=== PATIENT | male | born 1950 | race Caucasian/White ===

== ENCOUNTER 2017-08-06 15:05 | Emergency (ER) | payer MEDICARE, OTHER ==
[2017-08-06 15:13] VITALS: BP 90/54
[2017-08-06] MEDS ORDERED: Albuterol/Ipratropium 3.0-0.5 MG/3 ML Neb Soln ONE (15:15)
--- NOTE | 2017-08-06 15:15 | EDM.PDOC ---
ED HPI GENERAL MEDICAL PROBLEM - General Chief Complaint: Respiratory Problem Stated Complaint: SOB .IN BY [facility] Time Seen by Provider: 08/06/17 15:15 Source of Information: Reports: Patient, EMS, Old Records, RN, RN Notes Reviewed History Limitations: Reports: No Limitations - History of Present Illness INITIAL COMMENTS - FREE TEXT/NARRATIVE: [facility] with c/o progressively worsening shortness of breath over the past 3 days with thick sputum production. Today NH staff found the pt with labored breathing and Oxy. Sats. of 85%. Pt unsure if he has had a fever or not. Triage nurse reports pt with fever of 38.5C on arrival to ER. Pt denies chest pain. 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 Treatments, Oxygen - Related Data Allergies Allergy/AdvReac Type Severity Reaction Status Date / Time ciprofloxacin [From Cipro] Allergy Anaphylactic Verified 10/10/15 05:07 Shock ciprofloxacin HCl Allergy Anaphylactic Verified 10/10/15 05:07 [From Cipro] Shock Home Meds: Home Meds Budesonide [Pulmicort] 0.5 mg IH BID 12/16/13 [History] Formoterol [Perforomist] 20 mcg INH BID 12/16/13 [History] Potassium Chloride [K-Tab ER] 30 meq PO DAILY 12/16/13 [History] Tiotropium [Spiriva Handihaler] 18 mcg INH DAILY 12/16/13 [History] Acetaminophen 500 mg PO Q6H PRN 01/05/14 [History] Levalbuterol HCl [Xopenex] 1 ampule NEB Q4H PRN 01/05/14 [History] Roflumilast [Daliresp] 500 mcg PO DAILY 01/05/14 [History] Albuterol Sulfate [Proair Hfa] 8.5 gm IH Q4HR PRN 07/05/15 [History] Fluticasone Propionate [Flonase] 1 gm NASBOTH DAILY #1 bottle 07/11/15 [Rx] Pantoprazole [ProTONIX] 40 mg PO ACBREAKFAST 09/26/15 [History] Acetaminophen/oxyCODONE [Percocet 325-5 MG] 1 tab PO Q4H PRN #40 tablet [Rx] Amoxicillin/Potassium Clav [Augmentin 875-125 Tablet] 1 each PO BID #14 tablet 10/02/15 [Rx] Codeine/Promethazine [Phenergan with Codeine] 5 ml PO Q4HR PRN #180 ml 10/02/15 [Rx] Past Medical History HEENT History: Reports: None, Cataract Cardiovascular History: Reports: CAD, Heart Failure, Hypertension Respiratory History: Reports: COPD, Pneumonia, Recurrent, SOB, Other (See Below) Other Respiratory History: Lung CA Gastrointestinal History: Reports: Cholelithiasis, GERD, Pancreatitis Genitourinary History: Reports: None Musculoskeletal History: Reports: Gout Neurological History: Reports: None Psychiatric History: Reports: None Endocrine/Metabolic History: Reports: Diabetes, Type II Hematologic History: Reports: None Immunologic History: Reports: None Oncologic (Cancer) History: Reports: Lung Dermatologic History: Reports: Psoriasis - Infectious Disease History Infectious Disease History: Reports: Other (See Below) Other Infectious Disease History: cannot remember - Past Surgical History HEENT Surgical History: Reports: None, Cataract Surgery, Tonsillectomy GI Surgical History: Reports: Colonoscopy, EGD, Hernia, Inguinal, Hernia Repair/ Other Social & Family History - Family History Family Medical History: Noncontributory Other Cardiac Family History: pt adopted doesnot know history - Caffeine Use Caffeine Use: Reports: Coffee - Living Situation & Occupation Living situation: Reports: with Family Occupation: Retired ED ROS GENERAL - Review of Systems Review Of Systems: ROS reveals no pertinent complaints other than HPI. ED EXAM, GENERAL - Physical Exam Exam: See Below Exam Limited By: Respiratory Distress General Appearance: Alert, Anxious, Moderate Distress Eye Exam: Bilateral Eye: Normal Inspection Ears: Hearing Grossly Normal Nose: Normal Inspection, Normal Mucosa, No Blood Throat/Mouth: Normal Oropharynx, Normal Voice, No Airway Compromise Head: Atraumatic, Normocephalic Neck: Normal Inspection, Supple, Non-Tender, Full Range of Motion Respiratory/Chest: Chest Non-Tender, Decreased Breath Sounds, Rhonchi, Wheezing , Accessory Muscle Use, Prolonged Expiration Cardiovascular: No Edema, Tachycardia GI/Abdominal: Normal Bowel Sounds, Soft, Non-Tender, No Distention (Male) Exam: Deferred Rectal (Males) Exam: Deferred Back Exam: Normal Inspection Extremities: Normal Inspection, Normal Range of Motion, Non-Tender, Normal Capillary Refill, No Pedal Edema Neurological: Alert, Oriented, No Motor/Sensory Deficits Psychiatric: Anxious Skin Exam: Warm, Dry, Intact, Normal Color, No Rash EKG INTERPRETATION EKG Date: 08/06/17 Time: 15:26 Rhythm: Other (sinus tachycardia) Rate (Beats/Min): 137 [place]: Normal P-Wave: Present QRS: RBBB ST-T: Normal QT: Normal Course - Vital Signs Last Recorded V/S: Last Vital Signs Temp 38.5 C H 08/06/17 15:11 Pulse 62 08/06/17 15:20 Resp 19 08/06/17 15:11 BP 90/54 L 08/06/17 15:11 Pulse Ox 91 L 08/06/17 15:20 - Orders/Labs/Meds Orders: Active Orders 24 hr Category Date Time Status EKG 12 Lead [EKG Documentation Completion] [RC] STAT Care 08/06/17 15:16 Active RT Aerosol Therapy [RC] ASDIRECTED Care 08/06/17 15:20 Active CULTURE BLOOD [BC] Stat Lab 08/06/17 15:26 Received CULTURE BLOOD [BC] Stat Lab 08/06/17 15:47 Received Blood Culture x2 Reflex Set [OM.PC] Stat Oth 08/06/17 15:13 Ordered Labs: Laboratory Tests 08/06/17 08/06/17 08/06/17 Range/Units 15:26 15:26 15:26 WBC 34.9 H* (5.0-10.0) 10^3/uL RBC 4.94 (4.6-6.2) 10^6/uL Hgb 13.3 L D (14.0-18.0) g/dL Hct 42.8 (40.0-54.0) % MCV 86.6 (80-100) fL MCH 26.9 L (27.0-34.0) pg MCHC 31.1 L (33.0-35.0) g/dL Plt Count 319 (150-450) 10^3/uL Neut % (Auto) 91.9 H (42.2-75.2) % Lymph % (Auto) 2.5 L (20.5-50.1) % [place] % (Auto) 5.0 (2-8) % Eos % (Auto) 0.3 L (1.0-3.0) % Baso % (Auto) 0.3 (0.0-1.0) % ABG pH (7.35-7.45) ABG pCO2 (35-45) mmHg ABG pO2 (70-100) mmHg ABG HCO3 (22-26) mmol/L ABG O2 Saturation (95-100) % ABG Base Excess ((-2)-(+3)) mmol/L Akhil Test O2 Delivery Device Sodium 138 (135-145) mmol/L Potassium 4.3 (3.6-5.0) mmol/L Chloride 93 L (101-111) mmol/L Carbon Dioxide 33.0 H (21.0-31.0) mmol/L Anion Gap 16.3 BUN 20 H (7-18) mg/dL Creatinine 0.7 (0.6-1.3) mg/dL Est Cr Clr Drug Dosing 91.14 mL/min Estimated GFR (MDRD) > 60 BUN/Creatinine Ratio 28.57 Glucose 125 H (74-105) mg/dL Lactic Acid 2.0 (0.5-2.2) mmol/L Calcium 8.9 (8.4-10.2) mg/dl Total Bilirubin 0.9 (0.2-1.0) mg/dL AST 21 (10-42) IU/L ALT 18 (10-60) IU/L Alkaline Phosphatase 77 (42-121) IU/L Troponin I < 0.02 (0.00-0.02) ng/ml B-Natriuretic Peptide 33 (0-100) pg/ml Total Protein 7.9 (6.7-8.2) g/dl Albumin 4.0 (3.2-5.5) g/dl Globulin 3.9 Albumin/Globulin Ratio 1.03 /02/13 Range/Units 16:14 WBC (5.0-10.0) 10^3/uL RBC (4.6-6.2) 10^6/uL Hgb (14.0-18.0) g/dL Hct (40.0-54.0) % MCV (80-100) fL MCH (27.0-34.0) pg MCHC (33.0-35.0) g/dL Plt Count (150-450) 10^3/uL Neut % (Auto) (42.2-75.2) % Lymph % (Auto) (20.5-50.1) % [place] % (Auto) (2-8) % Eos % (Auto) (1.0-3.0) % Baso % (Auto) (0.0-1.0) % ABG pH 7.41 (7.35-7.45) ABG pCO2 53 H (35-45) mmHg ABG pO2 79 (70-100) mmHg ABG HCO3 32.2 H (22-26) mmol/L ABG O2 Saturation 97 (95-100) % ABG Base Excess 7 H ((-2)-(+3)) mmol/L Akhil Test Performed O2 Delivery Device Bipap Sodium (135-145) mmol/L Potassium (3.6-5.0) mmol/L Chloride (101-111) mmol/L Carbon Dioxide (21.0-31.0) mmol/L Anion Gap BUN (7-18) mg/dL Creatinine (0.6-1.3) mg/dL Est Cr Clr Drug Dosing mL/min Estimated GFR (MDRD) BUN/Creatinine Ratio Glucose (74-105) mg/dL Lactic Acid (0.5-2.2) mmol/L Calcium (8.4-10.2) mg/dl Total Bilirubin (0.2-1.0) mg/dL AST (10-42) IU/L ALT (10-60) IU/L Alkaline Phosphatase (42-121) IU/L Troponin I (0.00-0.02) ng/ml B-Natriuretic Peptide (0-100) pg/ml Total Protein (6.7-8.2) g/dl Albumin (3.2-5.5) g/dl Globulin Albumin/Globulin Ratio Meds: Medications Discontinued Medications Generic Name Dose Route Start Last Admin Trade Name Joseq PRN Reason Stop Dose Admin Albuterol/Ipratropium Confirm 08/06/17 15:15 08/06/17 15:18 Duoneb 3.0-0.5 Mg/3 Ml Administered 08/06/17 15:16 3 ml Dose Administration 3 ml .ROUTE .STK-MED ONE Albuterol/Ipratropium 3 ml 08/06/17 15:20 08/06/17 15:43 Duoneb 3.0-0.5 Mg/3 Ml NEB 08/06/17 15:21 3 ml ONETIME STA Administration Piperacillin Sod/Tazobactam 50 mls @ 100 mls/hr 08/06/17 15:46 08/06/17 16:14 Sod 4.5 gm/ Sodium Chloride IV 08/06/17 16:15 100 mls/hr ONETIME ONE Administration Sodium Chloride 1,000 mls @ 999 mls/hr 08/06/17 16:01 08/06/17 16:13 Normal Saline IV 08/06/17 17:01 999 mls/hr .BOLUS ONE Administration Methylprednisolone Sodium Succinate 125 mg 08/06/17 15:46 08/06/17 16:13 Solu-Medrol IVPUSH 08/06/17 15:47 125 mg ONETIME ONE Administration - Radiology Interpretation Free Text/Narrative:: Chest x-ray: No acute new cardiopulmonary abnormality. See rad report. Departure - Departure Time of Disposition: 16:00 Disposition: DC/[facility] to [facility] Condition: Critical Clinical Impression: Acute exacerbation of chronic obstructive pulmonary disease (COPD) Acute and chronic respiratory failure ([id number]) Qualifiers: Respiratory failure complication: hypoxia Qualified Code(s): J96.21 - Acute and chronic respiratory failure with hypoxia - Discharge Information Referrals: Gracie Cuellar MD [Primary Care Provider] - Forms: ED Department Discharge, Interfacility Transfer EMTALA - My Orders Last 24 Hours: My Active Orders 08/06/17 15:13 Blood Culture x2 Reflex Set [OM.PC] Stat 08/06/17 15:16 EKG 12 Lead [EKG Documentation Completion] [RC] STAT 08/06/17 15:20 RT Aerosol Therapy [RC] ASDIRECTED 08/06/17 15:26 CULTURE BLOOD [BC] Stat 08/06/17 15:47 CULTURE BLOOD [BC] Stat - Assessment/Plan Last 24 Hours: My Active Orders 08/06/17 15:13 Blood Culture x2 Reflex Set [OM.PC] Stat 08/06/17 15:16 EKG 12 Lead [EKG Documentation Completion] [RC] STAT 08/06/17 15:20 RT Aerosol Therapy [RC] ASDIRECTED 08/06/17 15:26 CULTURE BLOOD [BC] Stat 08/06/17 15:47 CULTURE BLOOD [BC] Stat
[2017-08-06] MEDS ORDERED: Albuterol/Ipratropium 3.0-0.5 MG/3 ML Neb Soln NEB STA (15:20)
[2017-08-06] MEDS ORDERED: methylPREDNISolone Sodium Succinate 125 MG/2 ML SDV IVPUSH ONE (15:46)
[2017-08-06] MEDS ORDERED: Piperacillin/Tazobactam 4.5 GM in Sodium Chloride 0.9% 50 ML IV ONE (15:46)
[2017-08-06 15:53] LABS: CHLORIDE,CL 93 mmol/L (101-111); SODIUM,NA 138 mmol/L (135-145)
[2017-08-06] MEDS ORDERED: Sodium Chloride 0.9% 1,000 ML IV ONE (16:01)
--- NOTE | 2017-08-06 16:04 | CR ---
Clinical history: 67-year-old male emergency department with shortness of breath. Interpretation: Old healed fracture deformities anterior right first and posterior lateral right sev enth rib. Chronic shaggy bronchitic pattern unchanged since 26 September 2015 exam (less optimal inspiratory effort crowds lung markings bases) Normal cardiac silhouette without cephalization of vascular flow, new signs of alveolar edema or depe ndent pleural fluid accumulation (effusion). No lung mass or hilar lymphadenopathy. No lobar pneumonia. No pneumothorax. CONCLUSION: No acute new cardiopulmonary abnormality.
[2017-08-06 16:36] LABS: O2 DELIVERY DEVICE BIPAP
[2017-08-06 16:56] LABS: ALLEN TEST PERFORMED; BASE EXCESS ARTERIAL 7 mmol/L ((-2)-(+3)); BICARBONATE,ARTERIAL 32.2 mmol/L (22-26); O2 SATURATION ARTERIAL 97 % (95-100); PCO2 ARTERIAL 53 mmHg (35-45); PO2 ARTERIAL 79 mmHg (70-100)
== END 2017-08-06 17:02 ==
LOC: DL.ED 15:05 → SUPCPDRO 15:05 → DL.ED 17:02
DX: J44.1 Chronic obstructive pulmonary disease with (acute) exacerbation (principal); J96.21 Acute and chronic respiratory failure with hypoxia; I11.0 Hypertensive heart disease with heart failure; I50.9 Heart failure, unspecified; E11.9 Type 2 diabetes mellitus without complications; Z88.1 Allergy status to other antibiotic agents; Z79.899 Other long term (current) drug therapy
CPT/HCPCS: 36415; 36600; 71045; 80053; 82803; 83605; 83880; 84484; 85025; 87040; 93005; 94640; 96365; 96375; 99285; J2543; J2930; J7030; J7050; 93010

== ENCOUNTER 2017-10-07 16:55 | Inpatient (IN) | payer MEDICARE, OTHER ==
[2017-10-07] MEDS ORDERED: Piperacillin/Tazobactam 4.5 GM in Sodium Chloride 0.9% 50 ML IV ONE (17:07)
[2017-10-07] MEDS ORDERED: methylPREDNISolone Sodium Succinate 125 MG/2 ML SDV IVPUSH ONE (17:07)
[2017-10-07] MEDS ORDERED: Albuterol/Ipratropium 3.0-0.5 MG/3 ML Neb Soln NEB ONE ×2 (17:07→18:16)
[2017-10-07 17:48] LABS: ANION GAP 14.2; CHLORIDE,CL 97 mmol/L (101-111); SODIUM,NA 138 mmol/L (135-145)
[2017-10-07] MEDS: Sodium Chloride 0.9% 10 ML Syringe FLUSH PRN (17:49)
[2017-10-07 18:57] LABS: O2 DELIVERY DEVICE NASAL CANNULA
--- NOTE | 2017-10-07 19:00 | EDM.PDOC ---
Scribed by Sol Cosme 10/07/17 2450 for Tyler Dueñas MD ED HPI GENERAL MEDICAL PROBLEM - General Chief Complaint: Respiratory Problem Stated Complaint: RESP PROBLEM Time Seen by Provider: 10/07/17 16:57 Source of Information: Reports: Patient, EMS, Senior Living Records, Old Records , RN, RN Notes Reviewed History Limitations: Reports: No Limitations - History of Present Illness INITIAL COMMENTS - FREE TEXT/NARRATIVE: Pt presents to ER from [facility] with c/o 1 weeks duration of progressively worsening shortness of breath, with wheezing, and some clear sputum production. Pt denies fever or chest pain. He is supplemental oxygen dependent. He denies edema, or orthopnea. 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, Other Medication(s) - Related Data Allergies Allergy/AdvReac Type Severity Reaction Status Date / Time ciprofloxacin [From Cipro] Allergy Anaphylactic Verified 10/07/17 17:25 Shock ciprofloxacin HCl Allergy Anaphylactic Verified 10/07/17 17:25 [From Cipro] Shock Home Meds: Home Meds Budesonide [Pulmicort] 0.5 mg IH BID 12/16/13 [History] Formoterol [Perforomist] 20 mcg INH BID 12/16/13 [History] Potassium Chloride [K-Tab ER] 30 meq PO DAILY 12/16/13 [History] Tiotropium [Spiriva Handihaler] 18 mcg INH DAILY 12/16/13 [History] Acetaminophen 500 mg PO Q6H PRN 01/05/14 [History] Levalbuterol HCl [Xopenex] 1 ampule NEB Q4H PRN 01/05/14 [History] Roflumilast [Daliresp] 500 mcg PO DAILY 01/05/14 [History] Albuterol Sulfate [Proair Hfa] 8.5 gm IH Q4HR PRN 07/05/15 [History] Fluticasone Propionate [Flonase] 1 gm NASBOTH DAILY #1 bottle 07/11/15 [Rx] Pantoprazole [ProTONIX] 40 mg PO ACBREAKFAST 09/26/15 [History] Acetaminophen/oxyCODONE [Percocet 325-5 MG] 1 tab PO Q4H PRN #40 tablet [Rx] Amoxicillin/Potassium Clav [Augmentin 875-125 Tablet] 1 each PO BID #14 tablet 10/02/15 [Rx] Codeine/Promethazine [Phenergan with Codeine] 5 ml PO Q4HR PRN #180 ml 10/02/15 [Rx] Past Medical History HEENT History: Reports: None, Cataract Cardiovascular History: Reports: CAD, Heart Failure, Hypertension Respiratory History: Reports: COPD, Pneumonia, Recurrent, SOB, Other (See Below) Other Respiratory History: Lung CA Gastrointestinal History: Reports: Cholelithiasis, GERD, Pancreatitis Genitourinary History: Reports: None Musculoskeletal History: Reports: Gout Neurological History: Reports: None Psychiatric History: Reports: None Endocrine/Metabolic History: Reports: Diabetes, Type II Hematologic History: Reports: None Immunologic History: Reports: None Oncologic (Cancer) History: Reports: Lung Dermatologic History: Reports: Psoriasis - Infectious Disease History Infectious Disease History: Reports: Other (See Below) Other Infectious Disease History: cannot remember - Past Surgical History HEENT Surgical History: Reports: None, Cataract Surgery, Tonsillectomy GI Surgical History: Reports: Colonoscopy, EGD, Hernia, Inguinal, Hernia Repair/ Other Social & Family History - Family History Family Medical History: Noncontributory Other Cardiac Family History: pt adopted doesnot know history - Tobacco Use Smoking Status *Q: Never Smoker Tobacco Use Within Last Twelve Months: Cigarettes - Caffeine Use Caffeine Use: Reports: Coffee - Living Situation & Occupation Living situation: Reports: Extended Care Facility ([facility] ) Occupation: Retired ED ROS GENERAL - Review of Systems Review Of Systems: ROS reveals no pertinent complaints other than HPI. ED EXAM, GENERAL - Physical Exam Exam: See Below Exam Limited By: No Limitations General Appearance: Alert, No Apparent Distress, Other (chronically ill appearing) Eye Exam: Bilateral Eye: Normal Inspection Ears: Normal External Exam, Hearing Grossly Normal Nose: Normal Inspection, Normal Mucosa, No Blood Throat/Mouth: Normal Inspection, Normal Lips, Normal Teeth, Normal Gums, Normal Oropharynx, Normal Voice, No Airway Compromise Head: Atraumatic, Normocephalic Neck: Normal Inspection, Supple, Non-Tender, Full Range of Motion Respiratory/Chest: No Respiratory Distress, No Accessory Muscle Use, Decreased Breath Sounds, Crackles, Wheezing Cardiovascular: Regular Rate, Rhythm, No Edema, Tachycardia GI/Abdominal: Normal Bowel Sounds, Soft, Non-Tender, No Distention (Male) Exam: Deferred Rectal (Males) Exam: Deferred Back Exam: Normal Inspection Extremities: Normal Inspection, Normal Range of Motion, Non-Tender, Normal Capillary Refill, No Pedal Edema Neurological: Alert, Oriented, CN II-XII Intact, Normal Cognition, No Motor/ Sensory Deficits Psychiatric: Normal Affect, Normal Mood Skin Exam: Warm, Dry, Intact, Normal Color, No Rash EKG INTERPRETATION EKG Date: 10/07/17 Time: 17:19 Rhythm: Other (sinus tachycardia) Rate (Beats/Min): 124 [place]: Normal P-Wave: Present QRS: Other (lateral Q waves, old.) ST-T: Normal QT: Normal Comparison: No Change Course - Vital Signs Last Recorded V/S: Last Vital Signs Temp 36.9 C 10/07/17 17:00 Pulse 122 H 10/07/17 17:07 Resp 24 H 10/07/17 17:00 BP 130/63 10/07/17 17:00 Pulse Ox 95 10/07/17 17:07 - Orders/Labs/Meds Orders: Active Orders 24 hr Category Date Time Status EKG 12 Lead [EKG Documentation Completion] [RC] STAT Care 10/07/17 17:05 Active Peripheral IV Care [RC] . DIRECTED Care 10/07/17 17:06 Active RT Aerosol Therapy [RC] ASDIRECTED Care 10/07/17 17:07 Active RT Aerosol Therapy [RC] ASDIRECTED Care 10/07/17 18:16 Active ABG [BLOOD GAS ARTERIAL] [BG] Stat Lab 10/07/17 18:15 Ordered CULTURE BLOOD [BC] Stat Lab 10/07/17 17:16 Received CULTURE BLOOD [BC] Stat Lab 10/07/17 17:21 Received UA W/MICROSCOPIC [URIN] Stat Lab 10/07/17 17:06 Ordered Sodium Chloride 0.9% [Saline Flush] Med 10/07/17 17:05 Active 10 ml FLUSH ASDIRECTED PRN Blood Culture x2 Reflex Set [OM.PC] Stat Oth 10/07/17 17:06 Ordered Peripheral IV Insertion Adult [OM.PC] Stat Oth 10/07/17 17:05 Ordered Medication Orders Sodium Chloride (Saline Flush) 10 ml FLUSH ASDIRECTED PRN PRN Reason: Keep Vein Open Last Admin: 10/07/17 17:49 Dose: 10 ml Labs: Laboratory Tests 10/07/17 10/07/17 10/07/17 Range/Units 17:16 17:16 17:16 WBC 31.9 H* (5.0-10.0) 10^3/uL RBC 4.42 L (4.6-6.2) 10^6/uL Hgb 10.4 L D (14.0-18.0) g/dL Hct 35.6 L (40.0-54.0) % MCV 80.5 D (80-100) fL MCH 23.5 L (27.0-34.0) pg MCHC 29.2 L (33.0-35.0) g/dL Plt Count 312 (150-450) 10^3/uL Neut % (Auto) 89.8 H (42.2-75.2) % Lymph % (Auto) 2.7 L (20.5-50.1) % [place] % (Auto) 6.5 (2-8) % Eos % (Auto) 0.7 L (1.0-3.0) % Baso % (Auto) 0.3 (0.0-1.0) % Add Manual Diff Yes Neutrophils % (Manual) 94 H (42-75) % Band Neutrophils % 1 % Lymphocytes % (Manual) 2 L (20-50) % Monocytes % (Manual) 3 (2-8) % Sodium 138 (135-145) mmol/L Potassium 4.2 (3.6-5.0) mmol/L Chloride 97 L (101-111) mmol/L Carbon Dioxide 31.0 (21.0-31.0) mmol/L Anion Gap 14.2 BUN 15 (7-18) mg/dL Creatinine 0.9 (0.6-1.3) mg/dL Est Cr Clr Drug Dosing 70.89 mL/min Estimated GFR (MDRD) > 60 BUN/Creatinine Ratio 16.66 Glucose 134 H (74-105) mg/dL Lactic Acid 1.5 (0.5-2.2) mmol/L Calcium 8.7 (8.4-10.2) mg/dl Total Bilirubin 1.0 (0.2-1.0) mg/dL AST 17 (10-42) IU/L ALT 14 (10-60) IU/L Alkaline Phosphatase 70 (42-121) IU/L Troponin I < 0.02 (0.00-0.02) ng/ml B-Natriuretic Peptide 54 (0-100) pg/ml Total Protein 6.9 (6.7-8.2) g/dl Albumin 3.7 (3.2-5.5) g/dl Globulin 3.2 Albumin/Globulin Ratio 1.16 Meds: Medications Generic Name Dose Route Start Last Admin Trade Name Freq PRN Reason Stop Dose Admin Sodium Chloride 10 ml 10/07/17 17:05 10/07/17 17:49 Saline Flush FLUSH 10 ml ASDIRECTED PRN Administration Keep Vein Open Discontinued Medications Generic Name Dose Route Start Last Admin Trade Name Freq PRN Reason Stop Dose Admin Albuterol/Ipratropium 3 ml 10/07/17 17:07 10/07/17 17:37 Duoneb 3.0-0.5 Mg/3 Ml NEB 10/07/17 17:08 3 ml ONETIME ONE Administration Albuterol/Ipratropium 3 ml 10/07/17 18:16 Duoneb 3.0-0.5 Mg/3 Ml NEB 10/07/17 18:17 ONETIME ONE Piperacillin Sod/Tazobactam 50 mls @ 100 mls/hr 10/07/17 17:07 10/07/17 17:48 Sod 4.5 gm/ Sodium Chloride IV 10/07/17 17:36 100 mls/hr ONETIME ONE Administration Methylprednisolone Sodium Succinate 125 mg 10/07/17 17:07 10/07/17 17:48 Solu-Medrol IVPUSH 10/07/17 17:08 125 mg ONETIME ONE Administration - Radiology Interpretation Free Text/Narrative:: [facility] Final Radiology Report Call: [phone] assistance Online chat: [email or web address] Name: MELE MONTEZ Age: 67Years M Date: 10/07/2017 SSN: -- : 1950 Study: XR CHEST 1 VIEW Requesting Physician: TYLER DUEÑAS Images: 1 Addl Studies: Provided Clinical History: Contrast: Contrast Medium: Contrast Amount: Contrast Method: CONFIDENTIALITY STATEMENT This report is intended only for use by the referring physician, and only in accordance with law. If you received this in error, call [phone]. Page 1 of 1 EXAM: XR Chest, 1 View CLINICAL HISTORY: 67 years old, male; Signs and symptoms; Other: Productive cough, hypoxia, HX copd TECHNIQUE: Frontal view of the chest. COMPARISON: CR - Chest 1V Frontal 2017-08-06 15:49 FINDINGS: Lungs: Unremarkable. No consolidation. Pleural space: Unremarkable. No pneumothorax. Heart: Unremarkable. No cardiomegaly. Mediastinum: Unremarkable. Bones/joints: There is a stable radiopaque density in the right lower lung field in an area of parenchymal scarring. This may be a foreign body from penetrating wound. There are also old healed rib fractures of the posterior seventh and eighth ribs in the same area. IMPRESSION: No acute findings. Thank you for allowing us to participate in the care of your patient. Dictated and Authenticated by: Sameer Castellano DO 10/07/2017 6:33 PM Central Time Departure - Departure Time of Disposition: 18:53 (admitted to Dr. Marx) Disposition: Admitted As Inpatient 65 Condition: Serious Clinical Impression: Acute exacerbation of chronic obstructive pulmonary disease (COPD), COPD, Severe chronic obstructive pulmonary disease Leukocytosis Qualifiers: Leukocytosis type: unspecified Qualified Code(s): D72.829 - Elevated white blood cell count, unspecified - Discharge Information Forms: ED Department Discharge - My Orders Last 24 Hours: My Active Orders 10/07/17 17:05 EKG 12 Lead [EKG Documentation Completion] [RC] STAT Sodium Chloride 0.9% [Saline Flush] 10 ml FLUSH ASDIRECTED PRN Peripheral IV Insertion Adult [OM.PC] Stat 10/07/17 17:06 Peripheral IV Care [RC] . DIRECTED UA W/MICROSCOPIC [URIN] Stat Blood Culture x2 Reflex Set [OM.PC] Stat 10/07/17 17:07 RT Aerosol Therapy [RC] ASDIRECTED 10/07/17 17:16 CULTURE BLOOD [BC] Stat 10/07/17 17:21 CULTURE BLOOD [BC] Stat 10/07/17 18:15 ABG [BLOOD GAS ARTERIAL] [BG] Stat 10/07/17 18:16 RT Aerosol Therapy [RC] ASDIRECTED - Assessment/Plan Last 24 Hours: My Active Orders 10/07/17 17:05 EKG 12 Lead [EKG Documentation Completion] [RC] STAT Sodium Chloride 0.9% [Saline Flush] 10 ml FLUSH ASDIRECTED PRN Peripheral IV Insertion Adult [OM.PC] Stat 10/07/17 17:06 Peripheral IV Care [RC] . DIRECTED UA W/MICROSCOPIC [URIN] Stat Blood Culture x2 Reflex Set [OM.PC] Stat 10/07/17 17:07 RT Aerosol Therapy [RC] ASDIRECTED 10/07/17 17:16 CULTURE BLOOD [BC] Stat 10/07/17 17:21 CULTURE BLOOD [BC] Stat 10/07/17 18:15 ABG [BLOOD GAS ARTERIAL] [BG] Stat 10/07/17 18:16 RT Aerosol Therapy [RC] ASDIRECTED I have read and agree with the documentation that has been completed regarding this visit. By signing this record, I attest that the documentation was completed in my physical presence and is an accurate record of the encounter.
[2017-10-07 19:06] LABS: ALLEN TEST PERFORMED; BASE EXCESS ARTERIAL 9 mmol/L ((-2)-(+3)); BICARBONATE,ARTERIAL 34.1 mmol/L (22-26); O2 SATURATION ARTERIAL 89 % (95-100); PCO2 ARTERIAL 54 mmHg (35-45); PO2 ARTERIAL 62 mmHg (70-100)
[2017-10-07] MEDS ORDERED: Magnesium Hydroxide 400 MG/5 ML Susp 30 ML Cup PO PRN (19:50)
[2017-10-07] MEDS ORDERED: Bisacodyl 10 MG Supp RECTAL PRN (19:50)
[2017-10-07] MEDS ORDERED: Aluminum Hydroxide/Magnesium Hydroxide/Simethicone Susp 30 ML Cup PO PRN (19:50)
[2017-10-07] MEDS ORDERED: Acetaminophen 325 MG Tab PO PRN (19:50)
[2017-10-07] MEDS ORDERED: Docusate Sodium 100 MG Cap PO PRN (19:50)
--- NOTE | 2017-10-07 20:15 | PCM.HP ---
H&P History of Present Illness - General Date of Service: 10/07/17 Admit Problem/Dx: Admission Diagnosis/Problem Admission Diagnosis/Problem Acute respiratory failure with hypoxia Source of Information: Patient, EMS, EMS Notes Reviewed History Limitations: Reports: No Limitations - History of Present Illness Initial Comments - Free Text/Narative: Patient is 67 y/o former smoker, resident of [facility]. Skilled Nursing with PMH of COPD on home oxygen, HTN. He presented to the ER with SOB x 1 week. This has been getting progressively worse. He gets SOB with minimal exertion with o2 sat deceaseeing to mid 80's. SOB is associated with wheezing, productive cough. Sputum is yellowish in color. No nasal congestion or discharge. Denies ill contact. He denies fever or chills. He notes chest pain with cough. No palpitation, orthopnea or PND. No leg selling or calf pain.In the ER patient was tarchycaric, tachypnic. His oxygen was increased to 4L and was saturating 92%. Onset of Symptoms: Reports: Gradual Duration of Symptoms: Reports: Day(s): Location: Reports: Chest Severity: Severe Improves with: Reports: None, Rest Worsens with: Reports: Movement Context: Reports: Activity/Exercise Associated Symptoms: Reports: Chest Pain, Cough, cough w sputum, Fever/Chills, Shortness of Breath - Related Data Allergies/Adverse Reactions: Allergies Allergy/AdvReac Type Severity Reaction Status Date / Time ciprofloxacin [From Cipro] Allergy Anaphylactic Verified 10/07/17 17:25 Shock ciprofloxacin HCl Allergy Anaphylactic Verified 10/07/17 17:25 [From Cipro] Shock Home Medications: Home Meds Budesonide [Pulmicort] 0.5 mg IH BID 12/16/13 [History] Formoterol [Perforomist] 20 mcg INH BID 12/16/13 [History] Potassium Chloride [K-Tab ER] 10 meq PO TIDMEALS 12/16/13 [History] Tiotropium [Spiriva Handihaler] 18 mcg INH DAILY 12/16/13 [History] Acetaminophen 500 mg PO Q4HR PRN 01/05/14 [History] Albuterol Sulfate [Proair Hfa] 2 puff IH Q4HR PRN 07/05/15 [History] Albuterol Sulfate 2.5 mg IH Q4HR PRN 10/07/17 [History] Albuterol/Ipratropium [DuoNeb 3.0-0.5 MG/3 ML] 3 ml NEB Q2HR PRN 10/07/17 [ History] Albuterol/Ipratropium [DuoNeb 3.0-0.5 MG/3 ML] 3 ml NEB Q6HR 10/07/17 [History] Bisacodyl [Dulcolax] 10 mg RC DAILY PRN 10/07/17 [History] Calcium Carbonate [Tums] 500 mg PO Q8HR PRN 10/07/17 [History] Fluticasone Propionate [Flonase] 50 mcg NASBOTH DAILY PRN 10/07/17 [History] Furosemide 20 mg PO BID 10/07/17 [History] Metoprolol Tartrate 12.5 mg PO BID 10/07/17 [History] Nicotine Polacrilex [Nicotine Lozenge] 2 mg BC Q1H PRN 10/07/17 [History] Ursodiol 250 mg PO TID 10/07/17 [History] oxyCODONE HCl/Acetaminophen [Oxycodone-Acetaminophen 5-325] 1 each PO Q4HR PRN 10/07/17 [History] Past Medical History HEENT History: Reports: None, Cataract Cardiovascular History: Reports: CAD, Heart Failure, Hypertension Respiratory History: Reports: COPD, Pneumonia, Recurrent, SOB, Other (See Below) Other Respiratory History: Lung CA Gastrointestinal History: Reports: Cholelithiasis, GERD, Pancreatitis Genitourinary History: Reports: None Musculoskeletal History: Reports: Gout Neurological History: Reports: None Psychiatric History: Reports: None Endocrine/Metabolic History: Reports: Diabetes, Type II Hematologic History: Reports: None Immunologic History: Reports: None Oncologic (Cancer) History: Reports: Lung Dermatologic History: Reports: Psoriasis - Infectious Disease History Infectious Disease History: Reports: Other (See Below) Other Infectious Disease History: cannot remember - Past Surgical History HEENT Surgical History: Reports: None, Cataract Surgery, Tonsillectomy GI Surgical History: Reports: Colonoscopy, EGD, Hernia, Inguinal, Hernia Repair/ Other Social & Family History - Family History Family Medical History: Noncontributory Other Cardiac Family History: pt adopted doesnot know history - Tobacco Use Smoking Status *Q: Never Smoker - Caffeine Use Caffeine Use: Reports: Coffee - Living Situation & Occupation Living situation: Reports: Extended Care Facility ([facility] ) Occupation: Retired H&P Review of Systems - Review of Systems: Review Of Systems: See Below General: Reports: No Symptoms, Fever HEENT: Reports: No Symptoms Pulmonary: Reports: No Symptoms, Shortness of Breath, Wheezing, Cough, Sputum Cardiovascular: Reports: No Symptoms, Palpitations, Dyspnea on Exertion Gastrointestinal: Reports: No Symptoms Genitourinary: Reports: No Symptoms Musculoskeletal: Reports: No Symptoms Skin: Reports: No Symptoms Psychiatric: Reports: No Symptoms Neurological: Reports: No Symptoms Hematologic/Lymphatic: Reports: No Symptoms Immunologic: Reports: No Symptoms Exam - Exam Exam: See Below - Vital Signs Vital Signs: Last Vital Signs Temp 98.5 F 10/07/17 17:00 Pulse 122 H 10/07/17 17:07 Resp 24 H 10/07/17 17:00 BP 130/63 10/07/17 17:00 Pulse Ox 95 10/07/17 17:07 Weight: 178 lb - Exam Quality Assessment: Supplemental Oxygen General: Alert, Oriented, Moderate Distress HEENT: PERRLA, Hearing Intact, Mucosa Moist & [place], Nares Patent, Normal Nasal Septum, Posterior Pharynx Clear, Conjunctiva Clear, EOMI, EACs Clear, TMs Clear Neck: Supple, Trachea Midline, 2 Lungs: Normal Respiratory Effort, Rales, Wheezing Cardiovascular: Regular Rate, Regular Rhythm, Normal S1, Normal S2, Tachycardia GI/Abdominal Exam: Normal Bowel Sounds, Soft, Non-Tender, No Organomegaly, No Distention, No Abnormal Bruit, No Mass, Pelvis Stable (Male) Exam: No Hernia, Normal Inspection, Normal Prostate, Circumcised Rectal (Males) Exam: Normal Exam, Normal Rectal Tone, Prostate Normal Back Exam: Normal Inspection, Full Range of Motion, NT Extremities: Normal Inspection, Normal Range of Motion, Non-Tender, No Pedal Edema, Normal Capillary Refill Skin: Warm, Dry, Intact Neurological: Cranial Nerves Intact, Reflexes Equal Bilateral Neuro Extensive - Mental Status: Alert, Oriented x3, Normal Mood/Affect, Normal Cognition Neuro Extensive - Motor, Sensory, Reflexes: CN II-XII Intact, Normal Gait, Normal Reflexes Psychiatric: Alert, Normal Affect, Normal Mood - Patient Data Lab Results Last 24 hrs: Laboratory Results - last 24 hr 10/07/17 10/07/17 10/07/17 Range/Units 17:16 17:16 17:16 WBC 31.9 H* (5.0-10.0) 10^3/uL RBC 4.42 L (4.6-6.2) 10^6/uL Hgb 10.4 L D (14.0-18.0) g/dL Hct 35.6 L (40.0-54.0) % MCV 80.5 D (80-100) fL MCH 23.5 L (27.0-34.0) pg MCHC 29.2 L (33.0-35.0) g/dL Plt Count 312 (150-450) 10^3/uL Neut % (Auto) 89.8 H (42.2-75.2) % Lymph % (Auto) 2.7 L (20.5-50.1) % [place] % (Auto) 6.5 (2-8) % Eos % (Auto) 0.7 L (1.0-3.0) % Baso % (Auto) 0.3 (0.0-1.0) % Add Manual Diff Yes Neutrophils % (Manual) 94 H (42-75) % Band Neutrophils % 1 % Lymphocytes % (Manual) 2 L (20-50) % Monocytes % (Manual) 3 (2-8) % ABG pH (7.35-7.45) ABG pCO2 (35-45) mmHg ABG pO2 (70-100) mmHg ABG HCO3 (22-26) mmol/L ABG O2 Saturation (95-100) % ABG Base Excess ((-2)-(+3)) mmol/L Akhil Test O2 Delivery Device Sodium 138 (135-145) mmol/L Potassium 4.2 (3.6-5.0) mmol/L Chloride 97 L (101-111) mmol/L Carbon Dioxide 31.0 (21.0-31.0) mmol/L Anion Gap 14.2 BUN 15 (7-18) mg/dL Creatinine 0.9 (0.6-1.3) mg/dL Est Cr Clr Drug Dosing 70.89 mL/min Estimated GFR (MDRD) > 60 BUN/Creatinine Ratio 16.66 Glucose 134 H (74-105) mg/dL Lactic Acid 1.5 (0.5-2.2) mmol/L Calcium 8.7 (8.4-10.2) mg/dl Total Bilirubin 1.0 (0.2-1.0) mg/dL AST 17 (10-42) IU/L ALT 14 (10-60) IU/L Alkaline Phosphatase 70 (42-121) IU/L Troponin I < 0.02 (0.00-0.02) ng/ml B-Natriuretic Peptide 54 (0-100) pg/ml Total Protein 6.9 (6.7-8.2) g/dl Albumin 3.7 (3.2-5.5) g/dl Globulin 3.2 Albumin/Globulin Ratio 1.16 /03/15 Range/Units 18:15 WBC (5.0-10.0) 10^3/uL RBC (4.6-6.2) 10^6/uL Hgb (14.0-18.0) g/dL Hct (40.0-54.0) % MCV (80-100) fL MCH (27.0-34.0) pg MCHC (33.0-35.0) g/dL Plt Count (150-450) 10^3/uL Neut % (Auto) (42.2-75.2) % Lymph % (Auto) (20.5-50.1) % [place] % (Auto) (2-8) % Eos % (Auto) (1.0-3.0) % Baso % (Auto) (0.0-1.0) % Add Manual Diff Neutrophils % (Manual) (42-75) % Band Neutrophils % % Lymphocytes % (Manual) (20-50) % Monocytes % (Manual) (2-8) % ABG pH 7.42 (7.35-7.45) ABG pCO2 54 H (35-45) mmHg ABG pO2 62 L (70-100) mmHg ABG HCO3 34.1 H (22-26) mmol/L ABG O2 Saturation 89 L (95-100) % ABG Base Excess 9 H ((-2)-(+3)) mmol/L Akhil Test Performed O2 Delivery Device Nasal cannula Sodium (135-145) mmol/L Potassium (3.6-5.0) mmol/L Chloride (101-111) mmol/L Carbon Dioxide (21.0-31.0) mmol/L Anion Gap BUN (7-18) mg/dL Creatinine (0.6-1.3) mg/dL Est Cr Clr Drug Dosing mL/min Estimated GFR (MDRD) BUN/Creatinine Ratio Glucose (74-105) mg/dL Lactic Acid (0.5-2.2) mmol/L Calcium (8.4-10.2) mg/dl Total Bilirubin (0.2-1.0) mg/dL AST (10-42) IU/L ALT (10-60) IU/L Alkaline Phosphatase (42-121) IU/L Troponin I (0.00-0.02) ng/ml B-Natriuretic Peptide (0-100) pg/ml Total Protein (6.7-8.2) g/dl Albumin (3.2-5.5) g/dl Globulin Albumin/Globulin Ratio Result Diagrams: 10/07/17 17:16 10/07/17 17:16 - Problem List (1) Hypercapnic respiratory failure SNOMED Code(s): 174173849 ICD Code: J96.92 - RESPIRATORY FAILURE, UNSPECIFIED WITH HYPERCAPNIA Status : Acute Current Visit: Yes (2) Acute respiratory failure with hypoxia SNOMED Code(s): 65277701, 260393145 ICD Code: J96.01 - ACUTE RESPIRATORY FAILURE WITH HYPOXIA Status: Acute Current Visit: Yes (3) Acute and chronic respiratory failure ([id number]) SNOMED Code(s): 04199891 ICD Code: J96.20 - ACUTE AND CHR RESP FAILURE, UNSP W HYPOXIA OR HYPERCAPNIA Status: Acute Priority: High Current Visit: No Onset Date: 07/05/15 Qualifiers: Respiratory failure complication: hypoxia Qualified Code(s): J96.21 - Acute and chronic respiratory failure with hypoxia (4) Acute exacerbation of chronic obstructive pulmonary disease (COPD) SNOMED Code(s): 406085980 ICD Code: J44.1 - CHRONIC OBSTRUCTIVE PULMONARY DISEASE W (ACUTE) EXACERBATION Status: Acute Priority: High Current Visit: No Onset Date: 07/05/15 (5) Leukocytosis SNOMED Code(s): 092386697, 112781583 ICD Code: D72.829 - ELEVATED WHITE BLOOD CELL COUNT, UNSPECIFIED Status: Acute Current Visit: No Qualifiers: Leukocytosis type: unspecified Qualified Code(s): D72.829 - Elevated white blood cell count, unspecified Problem List Initiated/Reviewed/Updated: Yes Orders Last 24hrs: Active Orders 24 hr Category Date Time Status Patient Status [ADT] Routine ADT 10/07/17 19:50 Ordered Antiembolic Devices [RC] .Routine Care 10/07/17 19:54 Ordered EKG 12 Lead [EKG Documentation Completion] [RC] STAT Care 10/07/17 17:05 Active Intake and Output [RC] QSHIFT Care 10/07/17 19:53 Ordered Oxygen Therapy [RC] CONTINUOUS Care 10/07/17 19:53 Ordered Peripheral IV Care [RC] . DIRECTED Care 10/07/17 17:06 Active Pulse Oximetry [RC] CONTINUOUS Care 10/07/17 19:53 Ordered RT Aerosol Therapy [RC] ASDIRECTED Care 10/07/17 17:07 Active RT Aerosol Therapy [RC] ASDIRECTED Care 10/07/17 18:16 Active RT Aerosol Therapy [RC] ASDIRECTED Care 10/07/17 19:57 Ordered RT Post Treatment Assessment [RC] Click to Edit Care 10/07/17 20:00 Ordered RT Pre-Treatment Assessment [RC] Click to Edit Care 10/07/17 20:00 Ordered Up to Chair [RC] ASDIRECTED Care 10/07/17 19:50 Ordered VTE/DVT Education [RC] PER UNIT ROUTINE Care 10/07/17 19:54 Ordered Vital Signs [RC] Q4H Care 10/07/17 19:50 Ordered Regular Diet [DIET] Diet 10/08/17 Breakfast Ordered B-TYPE NATRIURETIC PEPTIDE,BNP [CHEM] Routine Lab 10/07/17 20:07 Ordered CBC WITH AUTO DIFF [HEME] AM Lab 10/09/17 05:11 Ordered CULTURE BLOOD [BC] Stat Lab 10/07/17 17:16 Received CULTURE BLOOD [BC] Stat Lab 10/07/17 17:21 Received MAGNESIUM [CHEM] Routine Lab 10/07/17 19:56 Ordered PHOSPHORUS [CHEM] Routine Lab 10/07/17 19:56 Ordered UA W/MICROSCOPIC [URIN] Stat Lab 10/07/17 17:06 Ordered Acetaminophen [Tylenol] Med 10/07/17 19:50 Ordered 650 mg PO Q4H PRN Albuterol/Ipratropium [DuoNeb 3.0-0.5 MG/3 ML] Med 10/07/17 23:00 Ordered 3 ml NEB Q4HRRT Alum Hydrox/Mag Hydrox/Simeth [Mag-Al Plus] Med 10/07/17 19:50 Ordered 30 ml PO Q4H PRN Azithromycin [Zithromax] 500 mg Med 10/07/17 20:15 Ordered Sodium Chloride 0.9% [Normal Saline] 250 ml IV Q24H Bisacodyl [Dulcolax] Med 10/07/17 19:50 Ordered 10 mg RECTAL DAILY PRN Budesonide [Pulmicort] Med 10/08/17 07:00 Ordered 0.5 mg NEB BIDRT Docusate Sodium [Colace] Med 10/07/17 19:50 Ordered 100 mg PO DAILY PRN Fluticasone Propionate [Flonase] Med 10/08/17 09:00 Ordered 1 gm NASBOTH DAILY Heparin Sodium Med 10/07/17 20:00 Ordered 5,000 units SUBCUT Q12H Magnesium Hydroxide [Milk of Magnesia] Med 10/07/17 19:50 Ordered 30 ml PO BID PRN Pantoprazole [ProTONIX] Med 10/08/17 06:00 Ordered 40 mg PO ACBREAKFAST Potassium Chloride [Klor-Con 10] Med 10/08/17 09:00 Ordered 30 meq PO DAILY Sodium Chloride 0.9% [Saline Flush] Med 10/07/17 17:05 Active 10 ml FLUSH ASDIRECTED PRN Tiotropium [Spiriva HandiHaler] Med 10/08/17 09:00 Ordered 18 mcg INH DAILY methylPREDNISolone Sod Succ [Solu-MEDROL] Med 10/07/17 20:00 Ordered 40 mg IVPUSH Q6H Blood Culture x2 Reflex Set [OM.PC] Stat Oth 10/07/17 17:06 Ordered DVT/VTE Prophylaxis Reflex [OM.PC] Routine Oth 10/07/17 19:50 Ordered Peripheral IV Insertion Adult [OM.PC] Stat Oth 10/07/17 17:05 Ordered Resuscitation Status Routine Resus Stat 10/07/17 19:50 Ordered Medication Orders Acetaminophen (Tylenol) 650 mg PO Q4H PRN PRN Reason: Pain (mild 1-3 )/fever Al Hydroxide/Mg Hydroxide (Mag-Al Plus) 30 ml PO Q4H PRN PRN Reason: Dyspepsia Albuterol/Ipratropium (Duoneb 3.0-0.5 Mg/3 Ml) 3 ml NEB Q4HRRT [facility] Bisacodyl (Dulcolax) 10 mg RECTAL DAILY PRN PRN Reason: Constipation Budesonide (Pulmicort) 0.5 mg NEB BIDRT [facility] Docusate Sodium (Colace) 100 mg PO DAILY PRN PRN Reason: Constipation Fluticasone Propionate (Flonase) 1 gm NASBOTH DAILY [facility] Heparin Sodium (Porcine) (Heparin Sodium) 5,000 units SUBCUT Q12H [facility] Azithromycin 500 mg/ Sodium (Chloride) 250 mls @ 250 mls/hr IV Q24H [facility] Magnesium Hydroxide (Milk Of Magnesia) 30 ml PO BID PRN PRN Reason: Constipation Methylprednisolone Sodium Succinate (Solu-Medrol) 40 mg IVPUSH Q6H [facility] Pantoprazole Sodium (Protonix) 40 mg PO ACBREAKFAST [facility] Potassium Chloride (Klor-Con 10) 30 meq PO DAILY [facility] Sodium Chloride (Saline Flush) 10 ml FLUSH ASDIRECTED PRN PRN Reason: Keep Vein Open Last Admin: 10/07/17 17:49 Dose: 10 ml Tiotropium [place] (Spiriva Handihaler) 18 mcg INH DAILY [facility] Assessment/Plan Comment:: Acute on chronic hypoxic/hypercapnic respiratory failure due to COPD exacebation -Repeat ABG in the AM -continue supplemental oxygen and wean down as needed -monitor respiratroy stautus closely -Incentive spirometry and flutter valve COPD exacebation -IV solu-medrol 40 mg q8h -IV azithromycin -Due-Nebs -Pulmicort -formoterol Sinus Tarchycardia -this is due to above -IVF -telemetry HTN -BP within acceptable- limits -continue home medication Leukocytosis chronic -To work up folowing idischarge by PCP Diet -regular Full code
[2017-10-07] MEDS ORDERED: Non-Formulary Medication 1 Each (Nicotine Polacrilex [Nicotine Lozenge] 2 MG) BC PRN (20:36)
[2017-10-07] MEDS ORDERED: Calcium Carbonate 500 MG Tab.Chew PO PRN (20:36)
[2017-10-07] MEDS: Azithromycin 500 MG in Sodium Chloride 0.9% 250 ML IV SCH (20:58)
[2017-10-07] MEDS: Heparin Sodium 5,000 Units/ML Vial SUBCUT SCH (21:01)
[2017-10-07] MEDS: Furosemide 20 MG Tab PO SCH (21:14)
[2017-10-07] MEDS: Metoprolol Tartrate 25 MG Tab PO SCH (21:15)
[2017-10-07] MEDS: Acetaminophen/oxyCODONE 325-5 MG Tab PO PRN (21:15)
[2017-10-07] MEDS: Albuterol/Ipratropium 3.0-0.5 MG/3 ML Neb Soln NEB SCH (23:37)
[2017-10-07] MEDS: methylPREDNISolone Sodium Succinate 40 MG/1 ML SDV IVPUSH SCH (23:37)
[2017-10-08] MEDS: Albuterol/Ipratropium 3.0-0.5 MG/3 ML Neb Soln NEB SCH ×6 (03:33→22:39)
[2017-10-08] MEDS: methylPREDNISolone Sodium Succinate 40 MG/1 ML SDV IVPUSH SCH ×4 (06:12→23:46)
[2017-10-08] MEDS: Pantoprazole 40 MG Tab.CR PO SCH (06:12)
[2017-10-08] MEDS: Budesonide 0.5 MG/2 ML Neb Susp NEB SCH ×2 (08:04→17:39)
[2017-10-08] MEDS ORDERED: Potassium Chloride 10 MEQ Tab.ER PO SCH (09:00)
[2017-10-08] MEDS: URSODIOL 250 MG PO SCH ×4 (09:41→20:28)
[2017-10-08] MEDS: Heparin Sodium 5,000 Units/ML Vial SUBCUT SCH ×2 (09:47→20:26)
[2017-10-08] MEDS: Tiotropium Inhaler 18 MCG Inhalation Powder Cap Kit of 5 INH SCH (09:47)
[2017-10-08 09:48] LABS: ANION GAP 15.1; CHLORIDE,CL 95 mmol/L (101-111); SODIUM,NA 139 mmol/L (135-145)
[2017-10-08] MEDS: Metoprolol Tartrate 25 MG Tab PO SCH ×2 (09:48→20:31)
[2017-10-08] MEDS: Potassium Chloride 10 MEQ Tab.ER PO SCH ×3 (09:48→17:39)
[2017-10-08] MEDS: Furosemide 20 MG Tab PO SCH ×2 (09:48→14:27)
[2017-10-08] MEDS: Fluticasone Propionate Nasal Spray 16 GM Bottle NASBOTH SCH (09:49)
--- NOTE | 2017-10-08 11:20 | PCM.PN ---
- General Info Date of Service: 10/08/17 Admission Dx/Problem (Free Text): Admission Diagnosis/Problem Admission Diagnosis/Problem Acute respiratory failure with hypoxia Subjective Update: Patient is 67 y/o former smoker, resident of [facility] with PMH of COPD on home oxygen, HTN. He presented to the ER with SOB x 1 week. This has been getting progressively worse. He was admitted for COPD exacebation. PAtient feeling well this morning. SOB anc cough improved.No fever or chills Functional Status: Reports: Pain Controlled - Review of Systems General: Reports: No Symptoms HEENT: Reports: No Symptoms Pulmonary: Reports: No Symptoms Cardiovascular: Reports: No Symptoms Gastrointestinal: Reports: No Symptoms Genitourinary: Reports: No Symptoms Musculoskeletal: Reports: No Symptoms Skin: Reports: No Symptoms Neurological: Reports: No Symptoms Psychiatric: Reports: No Symptoms - Patient Data Vitals - Most Recent: Last Vital Signs Temp 97.4 F 10/08/17 07:56 Pulse 98 10/08/17 09:48 Resp 20 10/08/17 07:56 BP 118/62 10/08/17 09:48 Pulse Ox 93 L 10/08/17 07:56 Weight - Most Recent: 178 lb I&O - Last 24 Hours: Intake & Output 10/07/17 10/08/17 10/08/17 22:59 06:59 14:59 Intake Total 200 250 Output Total 180 300 Balance 20 -50 Lab Results Last 24 Hours: Laboratory Results - last 24 hr 10/07/17 10/07/17 10/07/17 Range/Units 17:16 17:16 17:16 WBC 31.9 H* (5.0-10.0) 10^3/uL RBC 4.42 L (4.6-6.2) 10^6/uL Hgb 10.4 L D (14.0-18.0) g/dL Hct 35.6 L (40.0-54.0) % MCV 80.5 D (80-100) fL MCH 23.5 L (27.0-34.0) pg MCHC 29.2 L (33.0-35.0) g/dL Plt Count 312 (150-450) 10^3/uL Neut % (Auto) 89.8 H (42.2-75.2) % Lymph % (Auto) 2.7 L (20.5-50.1) % [place] % (Auto) 6.5 (2-8) % Eos % (Auto) 0.7 L (1.0-3.0) % Baso % (Auto) 0.3 (0.0-1.0) % Add Manual Diff Yes Neutrophils % (Manual) 94 H (42-75) % Band Neutrophils % 1 % Lymphocytes % (Manual) 2 L (20-50) % Monocytes % (Manual) 3 (2-8) % ABG pH (7.35-7.45) ABG pCO2 (35-45) mmHg ABG pO2 (70-100) mmHg ABG HCO3 (22-26) mmol/L ABG O2 Saturation (95-100) % ABG Base Excess ((-2)-(+3)) mmol/L Akhil Test O2 Delivery Device Sodium 138 (135-145) mmol/L Potassium 4.2 (3.6-5.0) mmol/L Chloride 97 L (101-111) mmol/L Carbon Dioxide 31.0 (21.0-31.0) mmol/L Anion Gap 14.2 BUN 15 (7-18) mg/dL Creatinine 0.9 (0.6-1.3) mg/dL Est Cr Clr Drug Dosing 70.89 mL/min Estimated GFR (MDRD) > 60 BUN/Creatinine Ratio 16.66 Glucose 134 H (74-105) mg/dL Lactic Acid 1.5 (0.5-2.2) mmol/L Calcium 8.7 (8.4-10.2) mg/dl Phosphorus (2.5-4.6) mg/dL Magnesium (1.8-2.5) mg/dL Total Bilirubin 1.0 (0.2-1.0) mg/dL AST 17 (10-42) IU/L ALT 14 (10-60) IU/L Alkaline Phosphatase 70 (42-121) IU/L Troponin I < 0.02 (0.00-0.02) ng/ml B-Natriuretic Peptide 54 (0-100) pg/ml Total Protein 6.9 (6.7-8.2) g/dl Albumin 3.7 (3.2-5.5) g/dl Globulin 3.2 Albumin/Globulin Ratio 1.16 Urine Color (YELLOW) Urine Appearance (CLEAR) Urine pH (5.0-9.0) Ur Specific [place] (1.005-1.030) Urine Protein (NEGATIVE) Urine Glucose (UA) (NEGATIVE) Urine Ketones (NEGATIVE) Urine Occult Blood (NEGATIVE) Urine Nitrite (NEGATIVE) Urine Bilirubin (NEGATIVE) Urine Urobilinogen (0.2-1.0) mg/dL Ur Leukocyte Esterase (NEGATIVE) Urine RBC /HPF Urine WBC (0-5/HPF) /HPF Ur Epithelial Cells /HPF Urine Bacteria (0-FEW/HPF) /HPF 10/07/17 10/07/17 10/07/17 Range/Units 17:16 18:15 23:45 WBC (5.0-10.0) 10^3/uL RBC (4.6-6.2) 10^6/uL Hgb (14.0-18.0) g/dL Hct (40.0-54.0) % MCV (80-100) fL MCH (27.0-34.0) pg MCHC (33.0-35.0) g/dL Plt Count (150-450) 10^3/uL Neut % (Auto) (42.2-75.2) % Lymph % (Auto) (20.5-50.1) % [place] % (Auto) (2-8) % Eos % (Auto) (1.0-3.0) % Baso % (Auto) (0.0-1.0) % Add Manual Diff Neutrophils % (Manual) (42-75) % Band Neutrophils % % Lymphocytes % (Manual) (20-50) % Monocytes % (Manual) (2-8) % ABG pH 7.42 (7.35-7.45) ABG pCO2 54 H (35-45) mmHg ABG pO2 62 L (70-100) mmHg ABG HCO3 34.1 H (22-26) mmol/L ABG O2 Saturation 89 L (95-100) % ABG Base Excess 9 H ((-2)-(+3)) mmol/L Akhil Test Performed O2 Delivery Device Nasal cannula Sodium (135-145) mmol/L Potassium (3.6-5.0) mmol/L Chloride (101-111) mmol/L Carbon Dioxide (21.0-31.0) mmol/L Anion Gap BUN (7-18) mg/dL Creatinine (0.6-1.3) mg/dL Est Cr Clr Drug Dosing mL/min Estimated GFR (MDRD) BUN/Creatinine Ratio Glucose (74-105) mg/dL Lactic Acid (0.5-2.2) mmol/L Calcium (8.4-10.2) mg/dl Phosphorus 3.4 (2.5-4.6) mg/dL Magnesium 1.5 L (1.8-2.5) mg/dL Total Bilirubin (0.2-1.0) mg/dL AST (10-42) IU/L ALT (10-60) IU/L Alkaline Phosphatase (42-121) IU/L Troponin I (0.00-0.02) ng/ml B-Natriuretic Peptide (0-100) pg/ml Total Protein (6.7-8.2) g/dl Albumin (3.2-5.5) g/dl Globulin Albumin/Globulin Ratio Urine Color Yellow (YELLOW) Urine Appearance Slightly cloudy (CLEAR) Urine pH 5.5 (5.0-9.0) Ur Specific [place] 1.015 (1.005-1.030) Urine Protein 30 H (NEGATIVE) Urine Glucose (UA) Negative (NEGATIVE) Urine Ketones Negative (NEGATIVE) Urine Occult Blood Negative (NEGATIVE) Urine Nitrite Negative (NEGATIVE) Urine Bilirubin Negative (NEGATIVE) Urine Urobilinogen 0.2 (0.2-1.0) mg/dL Ur Leukocyte Esterase Trace H (NEGATIVE) Urine RBC Not seen /HPF Urine WBC 0-5 (0-5/HPF) /HPF Ur Epithelial Cells Few /HPF Urine Bacteria Few (0-FEW/HPF) /HPF 10/08/17 10/08/17 Range/Units 09:05 09:05 WBC 33.7 H* (5.0-10.0) 10^3/uL RBC 4.49 L (4.6-6.2) 10^6/uL Hgb 10.7 L (14.0-18.0) g/dL Hct 36.1 L (40.0-54.0) % MCV 80.4 (80-100) fL MCH 23.8 L (27.0-34.0) pg MCHC 29.6 L (33.0-35.0) g/dL Plt Count 333 (150-450) 10^3/uL Neut % (Auto) (42.2-75.2) % Lymph % (Auto) (20.5-50.1) % [place] % (Auto) (2-8) % Eos % (Auto) (1.0-3.0) % Baso % (Auto) (0.0-1.0) % Add Manual Diff Neutrophils % (Manual) (42-75) % Band Neutrophils % % Lymphocytes % (Manual) (20-50) % Monocytes % (Manual) (2-8) % ABG pH (7.35-7.45) ABG pCO2 (35-45) mmHg ABG pO2 (70-100) mmHg ABG HCO3 (22-26) mmol/L ABG O2 Saturation (95-100) % ABG Base Excess ((-2)-(+3)) mmol/L Akhil Test O2 Delivery Device Sodium 139 (135-145) mmol/L Potassium 4.1 (3.6-5.0) mmol/L Chloride 95 L (101-111) mmol/L Carbon Dioxide 33.0 H (21.0-31.0) mmol/L Anion Gap 15.1 BUN 17 (7-18) mg/dL Creatinine 0.9 (0.6-1.3) mg/dL Est Cr Clr Drug Dosing 70.89 mL/min Estimated GFR (MDRD) > 60 BUN/Creatinine Ratio Glucose 210 H (74-105) mg/dL Lactic Acid (0.5-2.2) mmol/L Calcium 8.9 (8.4-10.2) mg/dl Phosphorus (2.5-4.6) mg/dL Magnesium (1.8-2.5) mg/dL Total Bilirubin (0.2-1.0) mg/dL AST (10-42) IU/L ALT (10-60) IU/L Alkaline Phosphatase (42-121) IU/L Troponin I (0.00-0.02) ng/ml B-Natriuretic Peptide (0-100) pg/ml Total Protein (6.7-8.2) g/dl Albumin (3.2-5.5) g/dl Globulin Albumin/Globulin Ratio Urine Color (YELLOW) Urine Appearance (CLEAR) Urine pH (5.0-9.0) Ur Specific [place] (1.005-1.030) Urine Protein (NEGATIVE) Urine Glucose (UA) (NEGATIVE) Urine Ketones (NEGATIVE) Urine Occult Blood (NEGATIVE) Urine Nitrite (NEGATIVE) Urine Bilirubin (NEGATIVE) Urine Urobilinogen (0.2-1.0) mg/dL Ur Leukocyte Esterase (NEGATIVE) Urine RBC /HPF Urine WBC (0-5/HPF) /HPF Ur Epithelial Cells /HPF Urine Bacteria (0-FEW/HPF) /HPF Med Orders - Current: Current Medications Acetaminophen (Tylenol) 650 mg PO Q4H PRN PRN Reason: Pain (mild 1-3 )/fever Al Hydroxide/Mg Hydroxide (Mag-Al Plus) 30 ml PO Q4H PRN PRN Reason: Dyspepsia Albuterol/Ipratropium (Duoneb 3.0-0.5 Mg/3 Ml) 3 ml NEB Q4HRRT [facility] Last Admin: 10/08/17 11:10 Dose: 3 ml Bisacodyl (Dulcolax) 10 mg RECTAL DAILY PRN PRN Reason: Constipation Budesonide (Pulmicort) 0.5 mg NEB BIDRT [facility] Last Admin: 10/08/17 08:04 Dose: 0.5 mg Calcium Carbonate/Glycine (Tums) 500 mg PO Q8H PRN PRN Reason: Heartburn Docusate Sodium (Colace) 100 mg PO DAILY PRN PRN Reason: Constipation Fluticasone Propionate (Flonase) 0 gm NASBOTH DAILY [facility] Last Admin: 10/08/17 09:49 Dose: 1 spray Furosemide (Lasix) 20 mg PO BIDDIURETIC [facility] Last Admin: 10/08/17 09:48 Dose: 20 mg Heparin Sodium (Porcine) (Heparin Sodium) 5,000 units SUBCUT Q12H [facility] Last Admin: 10/08/17 09:47 Dose: 5,000 units Azithromycin 500 mg/ Sodium (Chloride) 250 mls @ 250 mls/hr IV Q24H [facility] Last Admin: 10/07/17 20:58 Dose: 250 mls/hr Magnesium Hydroxide (Milk Of Magnesia) 30 ml PO BID PRN PRN Reason: Constipation Methylprednisolone Sodium Succinate (Solu-Medrol) 40 mg IVPUSH Q6H [facility] Last Admin: 10/08/17 06:12 Dose: 40 mg Metoprolol Tartrate (Lopressor) 12.5 mg PO BID [facility] Last Admin: 10/08/17 09:48 Dose: 12.5 mg Non-Formulary Medication (Nicotine Polacrilex [Nicotine Lozenge]) 2 mg BC Q1H PRN PRN Reason: tobacco cessation Oxycodone/Acetaminophen (Percocet 325-5 Mg) 1 tab PO Q4H PRN PRN Reason: Pain (moderate 4-6) Last Admin: 10/07/17 21:15 Dose: 1 tab Pantoprazole Sodium (Protonix) 40 mg PO ACBREAKFAST [facility] Last Admin: 10/08/17 06:12 Dose: 40 mg Formoterol [ Perforomist] 20 Mcg Pt's Own Med 0 each INH BIDRT [facility] Ursodiol [Ursodiol] 250 Mg Pt's Own Med 0 each PO TID [facility] Last Admin: 10/08/17 09:46 Dose: 1 each Potassium Chloride (Klor-Con 10) 10 meq PO TIDMEALS [facility] Last Admin: 10/08/17 09:48 Dose: 10 meq Sodium Chloride (Saline Flush) 10 ml FLUSH ASDIRECTED PRN PRN Reason: Keep Vein Open Last Admin: 10/07/17 17:49 Dose: 10 ml Tiotropium [place] (Spiriva Handihaler) 18 mcg INH DAILYRT [facility] Last Admin: 10/08/17 09:47 Dose: 1 cap Discontinued Medications Albuterol/Ipratropium (Duoneb 3.0-0.5 Mg/3 Ml) 3 ml NEB ONETIME ONE Stop: 10/07/17 17:08 Last Admin: 10/07/17 17:37 Dose: 3 ml Albuterol/Ipratropium (Duoneb 3.0-0.5 Mg/3 Ml) 3 ml NEB ONETIME ONE Stop: 10/07/17 18:17 Last Admin: 10/07/17 20:23 Dose: Not Given Piperacillin Sod/Tazobactam (Sod 4.5 gm/ Sodium Chloride) 50 mls @ 100 mls/hr IV ONETIME ONE Stop: 10/07/17 17:36 Last Admin: 10/07/17 17:48 Dose: 100 mls/hr Methylprednisolone Sodium Succinate (Solu-Medrol) 125 mg IVPUSH ONETIME ONE Stop: 10/07/17 17:08 Last Admin: 10/07/17 17:48 Dose: 125 mg Potassium Chloride (Klor-Con 10) 30 meq PO DAILY EVER - Exam Quality Assessment: Supplemental Oxygen General: Alert, Oriented HEENT: Pupils Equal, Pupils Reactive, EOMI, Mucous Membr. Moist/[place] Neck: Supple Lungs: Normal Respiratory Effort, Wheezing Cardiovascular: Regular Rate, Regular Rhythm GI/Abdominal Exam: Normal Bowel Sounds, Soft, Non-Tender, No Organomegaly, No Distention, No Abnormal Bruit, No Mass, Pelvis Stable (Male) Exam: No Hernia, Normal Inspection, Normal Prostate, Circumcised Back Exam: Normal Inspection, Full Range of Motion Extremities: Normal Inspection, Normal Range of Motion, Non-Tender, No Pedal Edema, Normal Capillary Refill Skin: Warm, Dry, Intact Wound/Incisions: Healing Well Neurological: No New Focal Deficit Psy/Mental Status: Alert, Normal Affect, Normal Mood - Problem List & Annotations (1) Hypercapnic respiratory failure SNOMED Code(s): 971477447 Code(s): J96.92 - RESPIRATORY FAILURE, UNSPECIFIED WITH HYPERCAPNIA Status : Acute Current Visit: Yes (2) Acute respiratory failure with hypoxia SNOMED Code(s): 32983235, 475887903 Code(s): J96.01 - ACUTE RESPIRATORY FAILURE WITH HYPOXIA Status: Acute Current Visit: Yes (3) Acute and chronic respiratory failure ([id number]) SNOMED Code(s): 90929177 Code(s): J96.20 - ACUTE AND CHR RESP FAILURE, UNSP W HYPOXIA OR HYPERCAPNIA Status: Acute Priority: High Current Visit: No Onset Date: 07/05/15 Qualifiers: Respiratory failure complication: hypoxia Qualified Code(s): J96.21 - Acute and chronic respiratory failure with hypoxia (4) Acute exacerbation of chronic obstructive pulmonary disease (COPD) SNOMED Code(s): 474388337 Code(s): J44.1 - CHRONIC OBSTRUCTIVE PULMONARY DISEASE W (ACUTE) EXACERBATION Status: Acute Priority: High Current Visit: No Onset Date: 07/05/15 (5) Leukocytosis SNOMED Code(s): 383122533, 587213398 Code(s): D72.829 - ELEVATED WHITE BLOOD CELL COUNT, UNSPECIFIED Status: Acute Current Visit: No Qualifiers: Leukocytosis type: unspecified Qualified Code(s): D72.829 - Elevated white blood cell count, unspecified - Problem List Review Problem List Initiated/Reviewed/Updated: Yes - My Orders Last 24 Hours: My Active Orders 10/07/17 19:50 Patient Status [ADT] Routine Up to Chair [RC] ASDIRECTED Vital Signs [RC] 04,08,12,16,20,00 Acetaminophen [Tylenol] 650 mg PO Q4H PRN Alum Hydrox/Mag Hydrox/Simeth [Mag-Al Plus] 30 ml PO Q4H PRN Bisacodyl [Dulcolax] 10 mg RECTAL DAILY PRN Docusate Sodium [Colace] 100 mg PO DAILY PRN Magnesium Hydroxide [Milk of Magnesia] 30 ml PO BID PRN DVT/VTE Prophylaxis Reflex [OM.PC] Routine Resuscitation Status Routine 10/07/17 19:53 Intake and Output [RC] QSHIFT Oxygen Therapy [RC] CONTINUOUS Pulse Oximetry [RC] CONTINUOUS 10/07/17 19:54 Antiembolic Devices [RC] 08,20 VTE/DVT Education [RC] 08,10/07/17 19:57 RT Aerosol Therapy [RC] ASDIRECTED 10/07/17 20:00 RT Post Treatment Assessment [RC] Click to Edit RT Pre-Treatment Assessment [RC] Click to Edit Heparin Sodium 5,000 units SUBCUT Q12H 10/07/17 20:33 Incentive Breathing [RT Incentive Spirometry] [RC] Q4HR 10/07/17 20:34 Flutter Valve Therapy [RT Chest Physiotherapy] [RC] Q4HR 10/07/17 20:36 Acetaminophen/oxyCODONE [Percocet 325-5 MG] 1 tab PO Q4H PRN Calcium Carbonate [Tums] 500 mg PO Q8H PRN Nicotine Polacrilex [Nicotine Lozenge] 2 mg BC Q1H PRN 10/07/17 21:00 Azithromycin [Zithromax] 500 mg Sodium Chloride 0.9% [Normal Saline] 250 ml IV Q24H Furosemide [Lasix] 20 mg PO BIDDIURETIC Metoprolol Tartrate [Lopressor] 12.5 mg PO BID Patient's Own Medication [Ptom] 0 each PO TID 10/07/17 23:00 Albuterol/Ipratropium [DuoNeb 3.0-0.5 MG/3 ML] 3 ml NEB Q4HRRT 10/08/17 00:00 methylPREDNISolone Sod Succ [Solu-MEDROL] 40 mg IVPUSH Q6H 10/08/17 06:00 Pantoprazole [ProTONIX] 40 mg PO ACBREAKFAST 10/08/17 07:00 Budesonide [Pulmicort] 0.5 mg NEB BIDRT Tiotropium [Spiriva HandiHaler] 18 mcg INH DAILYRT 10/08/17 08:00 Potassium Chloride [Klor-Con 10] 10 meq PO TIDMEALS 10/08/17 09:00 Communication Order [RC] 08,20 Communication Order [RC] 09,21 Fluticasone Propionate [Flonase] 0 gm NASBOTH DAILY 10/08/17 18:00 Patient's Own Medication [Ptom] 0 each INH BIDRT 10/08/17 Breakfast Regular Diet [DIET] - Plan Plan:: Acute on chronic hypoxic/hypercapnic respiratory failure due to COPD exacebation -improving -continue supplemental oxygen and wean down as needed -monitor respiratroy status closely -Incentive spirometry and flutter valve COPD exacebation -IV solu-medrol 40 mg q8h -IV azithromycin -Due-Nebs -Pulmicort -formoterol Sinus Tarchycardia -imrpoved -telemetry HTN -BP within acceptable- limits -continue home medication Leukocytosis chronic -To work up folowing idischarge by PCP Diet -regular Full code
[2017-10-08] MEDS: Sodium Chloride 0.9% 10 ML Syringe FLUSH PRN ×4 (12:43→23:45)
[2017-10-08] MEDS: FORMOTEROL 20 MCG INH SCH (17:45)
[2017-10-08] MEDS: Azithromycin 500 MG in Sodium Chloride 0.9% 250 ML IV SCH (20:34)
[2017-10-09] MEDS: Albuterol/Ipratropium 3.0-0.5 MG/3 ML Neb Soln NEB SCH ×6 (02:14→23:14)
[2017-10-09] MEDS: Sodium Chloride 0.9% 10 ML Syringe FLUSH PRN ×2 (06:15→13:59)
[2017-10-09] MEDS: methylPREDNISolone Sodium Succinate 40 MG/1 ML SDV IVPUSH SCH (06:15)
[2017-10-09] MEDS: Pantoprazole 40 MG Tab.CR PO SCH (06:16)
[2017-10-09] MEDS: FORMOTEROL 20 MCG INH SCH ×2 (07:00→20:15)
[2017-10-09] MEDS: Budesonide 0.5 MG/2 ML Neb Susp NEB SCH ×2 (07:12→19:03)
[2017-10-09] MEDS: Tiotropium Inhaler 18 MCG Inhalation Powder Cap Kit of 5 INH SCH (08:06)
[2017-10-09] MEDS: Furosemide 20 MG Tab PO SCH ×2 (08:25→13:57)
[2017-10-09] MEDS: Potassium Chloride 10 MEQ Tab.ER PO SCH ×3 (08:26→17:50)
[2017-10-09] MEDS: Heparin Sodium 5,000 Units/ML Vial SUBCUT SCH ×2 (08:27→21:07)
--- NOTE | 2017-10-09 09:17 | PCM.PN ---
- General Info Date of Service: 10/09/17 Admission Dx/Problem (Free Text): Admission Diagnosis/Problem Admission Diagnosis/Problem Acute respiratory failure with hypoxia and yelloe-green productive cough Subjective Update: Patient is 67 y/o former smoker, resident of [facility] with PMH of COPD on home oxygen, HTN. He presented to the ER with SOB x 1 week. This has been getting progressively worse. He was admitted for COPD exacebation. Pt is feeling better today and still coughing up yellow sputum, still on 4 L of oxyen and has bad dyspnea with minor exertion Functional Status: Reports: Pain Controlled, Tolerating Diet, Ambulating (very limited because saturation drops to 80's going from bed to rest room), Urinating - Review of Systems General: Reports: Weakness, Fatigue, Malaise, Appetite (good). Denies: Fever, Chills HEENT: Reports: Sinus Congestion. Denies: Headaches, Sore Throat, Visual Changes Pulmonary: Reports: Shortness of Breath, Cough, Sputum, Wheezing Cardiovascular: Reports: Dyspnea on Exertion. Denies: Chest Pain, Lightheadedness Gastrointestinal: Denies: Abdominal Pain, Diarrhea, Difficulty Swallowing, Nausea, Vomiting Genitourinary: Denies: Dysuria, Frequency, Urgency, Retention, Flank Pain Musculoskeletal: Denies: Neck Pain, Shoulder Pain, Joint Pain Skin: Denies: Cyanosis, Jaundice, Dryness, Bruising, Pruritis, Rash Neurological: Reports: Dizziness, Tremors, Weakness. Denies: Confusion Psychiatric: Denies: Confusion, Anxiety, Hallucinations - Patient Data Vitals - Most Recent: Last Vital Signs Temp 36.7 C 10/09/17 08:00 Pulse 112 H 10/09/17 08:00 Resp 20 10/09/17 08:00 BP 108/57 L 10/09/17 08:00 Pulse Ox 93 L 10/09/17 08:00 Weight - Most Recent: 81.919 kg I&O - Last 24 Hours: Intake & Output 10/08/17 10/09/17 10/09/17 22:59 06:59 14:59 Intake Total 400 Output Total 815 200 40 Balance -415 -200 -40 Lab Results Last 24 Hours: Laboratory Results - last 24 hr 10/08/17 10/08/17 Range/Units 09:05 09:05 WBC 33.7 H* (5.0-10.0) 10^3/uL RBC 4.49 L (4.6-6.2) 10^6/uL Hgb 10.7 L (14.0-18.0) g/dL Hct 36.1 L (40.0-54.0) % MCV 80.4 (80-100) fL MCH 23.8 L (27.0-34.0) pg MCHC 29.6 L (33.0-35.0) g/dL Plt Count 333 (150-450) 10^3/uL Sodium 139 (135-145) mmol/L Potassium 4.1 (3.6-5.0) mmol/L Chloride 95 L (101-111) mmol/L Carbon Dioxide 33.0 H (21.0-31.0) mmol/L Anion Gap 15.1 BUN 17 (7-18) mg/dL Creatinine 0.9 (0.6-1.3) mg/dL Est Cr Clr Drug Dosing 70.89 mL/min Estimated GFR (MDRD) > 60 Glucose 210 H (74-105) mg/dL Calcium 8.9 (8.4-10.2) mg/dl Chirag Results Last 24 Hours: Microbiology 10/07/17 17:16 Aerobic Blood Culture - Preliminary Blood - Venous NO GROWTH AFTER 1 DAY Anaerobic Blood Culture - Preliminary NO GROWTH AFTER 1 DAY 10/07/17 17:21 Aerobic Blood Culture - Preliminary Blood - Venous - Lab Draw NO GROWTH AFTER 1 DAY Anaerobic Blood Culture - Preliminary NO GROWTH AFTER 1 DAY Med Orders - Current: Current Medications Acetaminophen (Tylenol) 650 mg PO Q4H PRN PRN Reason: Pain (mild 1-3 )/fever Al Hydroxide/Mg Hydroxide (Mag-Al Plus) 30 ml PO Q4H PRN PRN Reason: Dyspepsia Albuterol/Ipratropium (Duoneb 3.0-0.5 Mg/3 Ml) 3 ml NEB Q4HRRT [facility] Last Admin: 10/09/17 07:12 Dose: 3 ml Bisacodyl (Dulcolax) 10 mg RECTAL DAILY PRN PRN Reason: Constipation Budesonide (Pulmicort) 0.5 mg NEB BIDRT [facility] Last Admin: 10/09/17 07:12 Dose: 0.5 mg Calcium Carbonate/Glycine (Tums) 500 mg PO Q8H PRN PRN Reason: Heartburn Docusate Sodium (Colace) 100 mg PO DAILY PRN PRN Reason: Constipation Fluticasone Propionate (Flonase) 0 gm NASBOTH DAILY [facility] Last Admin: 10/08/17 09:49 Dose: 1 spray Furosemide (Lasix) 20 mg PO BIDDIURETIC [facility] Last Admin: 10/09/17 08:25 Dose: 20 mg Heparin Sodium (Porcine) (Heparin Sodium) 5,000 units SUBCUT Q12H [facility] Last Admin: 10/09/17 08:27 Dose: 5,000 units Azithromycin 500 mg/ Sodium (Chloride) 250 mls @ 250 mls/hr IV Q24H [facility] Last Infusion: 10/08/17 22:39 Dose: Infused Magnesium Hydroxide (Milk Of Magnesia) 30 ml PO BID PRN PRN Reason: Constipation Methylprednisolone Sodium Succinate (Solu-Medrol) 125 mg IVPUSH Q8H [facility] Metoprolol Tartrate (Lopressor) 12.5 mg PO BID [facility] Last Admin: 10/08/17 20:31 Dose: 12.5 mg Oxycodone/Acetaminophen (Percocet 325-5 Mg) 1 tab PO Q4H PRN PRN Reason: Pain (moderate 4-6) Last Admin: 10/07/17 21:15 Dose: 1 tab Pantoprazole Sodium (Protonix) 40 mg PO ACBREAKFAST [facility] Last Admin: 10/09/17 06:16 Dose: 40 mg Formoterol [ Perforomist] 20 Mcg Pt's Own Med 0 each INH BIDRT [facility] Last Admin: 10/08/17 17:45 Dose: 1 each Ursodiol [Ursodiol] 250 Mg Pt's Own Med 0 each PO TID [facility] Last Admin: 10/08/17 20:28 Dose: 1 each Potassium Chloride (Klor-Con 10) 10 meq PO TIDMEALS [facility] Last Admin: 10/09/17 08:26 Dose: 10 meq Sodium Chloride (Saline Flush) 10 ml FLUSH ASDIRECTED PRN PRN Reason: Keep Vein Open Last Admin: 10/09/17 06:15 Dose: 10 ml Sodium Chloride ([place]al [place]) 1 ml OLIVERIO QID PRN PRN Reason: Congestion Tiotropium [place] (Spiriva Handihaler) 18 mcg INH DAILYRT [facility] Last Admin: 10/09/17 08:06 Dose: 1 cap Discontinued Medications Albuterol/Ipratropium (Duoneb 3.0-0.5 Mg/3 Ml) 3 ml NEB ONETIME ONE Stop: 10/07/17 17:08 Last Admin: 10/07/17 17:37 Dose: 3 ml Albuterol/Ipratropium (Duoneb 3.0-0.5 Mg/3 Ml) 3 ml NEB ONETIME ONE Stop: 10/07/17 18:17 Last Admin: 10/07/17 20:23 Dose: Not Given Piperacillin Sod/Tazobactam (Sod 4.5 gm/ Sodium Chloride) 50 mls @ 100 mls/hr IV ONETIME ONE Stop: 10/07/17 17:36 Last Admin: 10/07/17 17:48 Dose: 100 mls/hr Methylprednisolone Sodium Succinate (Solu-Medrol) 125 mg IVPUSH ONETIME ONE Stop: 10/07/17 17:08 Last Admin: 10/07/17 17:48 Dose: 125 mg Methylprednisolone Sodium Succinate (Solu-Medrol) 40 mg IVPUSH Q6H [facility] Last Admin: 10/09/17 06:15 Dose: 40 mg Non-Formulary Medication (Nicotine Polacrilex [Nicotine Lozenge]) 2 mg BC Q1H PRN PRN Reason: tobacco cessation Potassium Chloride (Klor-Con 10) 30 meq PO DAILY [facility]ER - Exam Quality Assessment: Supplemental Oxygen, DVT Prophylaxis. No: Urine Catheter General: Alert, Oriented, Cooperative, No Acute Distress HEENT: Pupils Equal, Pupils Reactive, Mucous Membr. Moist/[place] Neck: Supple, No JVD, No Thyromegaly. No: Lymphadenopathy Lungs: Clear to Auscultation, Normal Respiratory Effort, Crackles, Wheezing Cardiovascular: Regular Rate, Regular Rhythm, Murmurs GI/Abdominal Exam: Normal Bowel Sounds, Soft, Non-Tender, No Distention. No: Guarding, Rigid, Rebound, Tender (Male) Exam: Deferred Back Exam: Normal Inspection, Full Range of Motion Extremities: Normal Inspection, No Pedal Edema Skin: Warm, Dry, Intact Neurological: No New Focal Deficit Psy/Mental Status: Alert, Normal Affect, Normal Mood - Problem List Review Problem List Initiated/Reviewed/Updated: Yes - My Orders Last 24 Hours: My Active Orders 10/09/17 09:07 Sodium Chloride 0.65% [[place] [facility] [place]] 1 ml [place] QID PRN 10/09/17 14:00 methylPREDNISolone Sod Succ [Solu-MEDROL] 125 mg IVPUSH Q8H - Plan Plan:: This is a 67 Y/M resident of [place], History of smoking with COPD, on home oxygen 3 L/24 hrs, admitted with acute Hypoxic ERespiratory Failure Acute on chronic hypoxic/hypercapnic respiratory failure due to COPD exacebation -improving slowly -continue supplemental oxygen and wean down as needed -monitor respiratroy status closely -Continue using Incentive spirometry and flutter valve COPD exacebation - Change IV solu-medrol to 120 mg IV q8 hrs [ was at 40 mg q8h] -Continue IV azithromycin -Continue Due-Nebs -Will start Nasal Saline spray -Will continue Ribitussin 5 ml q6hrs PRN for cough -Pulmicort -formoterol Sinus Tarchycardia -imrpoved -telemetry HTN -BP within acceptable- limits -continue home medication Leukocytosis chronic -To work up folowing idischarge by PCP Diet -regular Full code
[2017-10-09] MEDS: Fluticasone Propionate Nasal Spray 16 GM Bottle NASBOTH SCH (09:53)
[2017-10-09] MEDS: Metoprolol Tartrate 25 MG Tab PO SCH ×2 (09:55→21:16)
[2017-10-09] MEDS: URSODIOL 250 MG PO SCH ×3 (09:57→21:15)
[2017-10-09] MEDS: Sodium Chloride 0.65% Nasal Spray 45 ML Bottle NAS PRN (10:04)
[2017-10-09] MEDS: methylPREDNISolone Sodium Succinate 125 MG/2 ML SDV IVPUSH SCH ×2 (13:58→23:14)
[2017-10-09] MEDS ORDERED: ALPRAZolam 0.25 MG Tab PO ONE (15:01)
[2017-10-09] MEDS: Azithromycin 500 MG in Sodium Chloride 0.9% 250 ML IV SCH (21:08)
[2017-10-10] MEDS: Albuterol/Ipratropium 3.0-0.5 MG/3 ML Neb Soln NEB SCH ×6 (02:45→23:20)
[2017-10-10] MEDS: Pantoprazole 40 MG Tab.CR PO SCH (06:00)
[2017-10-10] MEDS: methylPREDNISolone Sodium Succinate 125 MG/2 ML SDV IVPUSH SCH ×3 (06:01→21:32)
[2017-10-10] MEDS: FORMOTEROL 20 MCG INH SCH ×2 (07:40→19:10)
[2017-10-10] MEDS: Budesonide 0.5 MG/2 ML Neb Susp NEB SCH ×2 (07:40→19:10)
[2017-10-10] MEDS: Tiotropium Inhaler 18 MCG Inhalation Powder Cap Kit of 5 INH SCH (08:17)
[2017-10-10] MEDS: Furosemide 20 MG Tab PO SCH ×2 (08:52→14:32)
[2017-10-10] MEDS: Potassium Chloride 10 MEQ Tab.ER PO SCH ×3 (08:54→17:47)
[2017-10-10] MEDS: Metoprolol Tartrate 25 MG Tab PO SCH ×2 (08:54→20:12)
[2017-10-10] MEDS: Heparin Sodium 5,000 Units/ML Vial SUBCUT SCH ×2 (08:55→20:07)
[2017-10-10] MEDS: Fluticasone Propionate Nasal Spray 16 GM Bottle NASBOTH SCH (08:58)
[2017-10-10] MEDS: URSODIOL 250 MG PO SCH ×3 (08:59→20:11)
--- NOTE | 2017-10-10 09:51 | PCM.PN ---
- General Info Date of Service: 10/10/17 Admission Dx/Problem (Free Text): Admission Diagnosis/Problem Admission Diagnosis/Problem Acute respiratory failure with hypoxia and yelloe-green productive cough Subjective Update: Patient is 67 y/o former smoker, resident of [facility] with PMH of COPD on home oxygen, HTN. He presented to the ER with SOB x 1 week. This has been getting progressively worse. He was admitted for COPD exacebation. Pt is feeling better today and still coughing up yellow sputum but much improved , still on 4 L of oxyen and still has dyspnea with minor exertion, 02 sat drops to 80's going from bed to bathroom Functional Status: Reports: Tolerating Diet, Ambulating (very limited because of exertional dyspnea), Urinating - Review of Systems General: Reports: Weakness, Fatigue, Appetite (good). Denies: Fever, Chills HEENT: Reports: Sore Throat. Denies: Headaches, Sinus Congestion, Rhinitis Pulmonary: Reports: Shortness of Breath, Cough, Sputum, Wheezing Cardiovascular: Reports: Dyspnea on Exertion. Denies: Chest Pain, Edema, Lightheadedness Gastrointestinal: Denies: Abdominal Pain, Diarrhea, Nausea, Vomiting Genitourinary: Denies: Dysuria, Burning, Urgency, Flank Pain Musculoskeletal: Denies: Neck Pain, Shoulder Pain, Foot Pain Skin: Denies: Cyanosis, Jaundice, Dryness, Bruising, Pruritis, Rash Neurological: Denies: Confusion, Tingling, Tremors Psychiatric: Denies: Confusion, Anxiety - Patient Data Vitals - Most Recent: Last Vital Signs Temp 37.1 C 10/10/17 08:14 Pulse 137 H 10/10/17 08:54 Resp 20 10/10/17 08:14 BP 113/72 10/10/17 08:54 Pulse Ox 94 L 10/10/17 08:14 Weight - Most Recent: 82.01 kg I&O - Last 24 Hours: Intake & Output 10/09/17 10/10/17 10/10/17 22:59 06:59 14:59 Intake Total 340 1008 Output Total 885 60 300 Balance -545 948 -300 Chirag Results Last 24 Hours: Microbiology 10/07/17 17:16 Aerobic Blood Culture - Preliminary Blood - Venous NO GROWTH AFTER 2 DAYS Anaerobic Blood Culture - Preliminary NO GROWTH AFTER 2 DAYS 10/07/17 17:21 Aerobic Blood Culture - Preliminary Blood - Venous - Lab Draw NO GROWTH AFTER 2 DAYS Anaerobic Blood Culture - Preliminary NO GROWTH AFTER 2 DAYS Med Orders - Current: Current Medications Acetaminophen (Tylenol) 650 mg PO Q4H PRN PRN Reason: Pain (mild 1-3 )/fever Al Hydroxide/Mg Hydroxide (Mag-Al Plus) 30 ml PO Q4H PRN PRN Reason: Dyspepsia Albuterol/Ipratropium (Duoneb 3.0-0.5 Mg/3 Ml) 3 ml NEB Q4HRRT [facility] Last Admin: 10/10/17 07:40 Dose: 3 ml Bisacodyl (Dulcolax) 10 mg RECTAL DAILY PRN PRN Reason: Constipation Budesonide (Pulmicort) 0.5 mg NEB BIDRT [facility] Last Admin: 10/10/17 07:40 Dose: 0.5 mg Calcium Carbonate/Glycine (Tums) 500 mg PO Q8H PRN PRN Reason: Heartburn Docusate Sodium (Colace) 100 mg PO DAILY PRN PRN Reason: Constipation Fluticasone Propionate (Flonase) 0 gm NASBOTH DAILY [facility] Last Admin: 10/10/17 08:58 Dose: 1 spray Furosemide (Lasix) 20 mg PO BIDDIURETIC [facility] Last Admin: 10/10/17 08:52 Dose: 20 mg Guaifenesin/Phenylephrine HCl (Robitussin Dm) 5 ml PO Q4H PRN PRN Reason: Congestion Heparin Sodium (Porcine) (Heparin Sodium) 5,000 units SUBCUT Q12H [facility] Last Admin: 10/10/17 08:55 Dose: 5,000 units Azithromycin 500 mg/ Sodium (Chloride) 250 mls @ 250 mls/hr IV Q24H [facility] Last Admin: 10/09/17 21:08 Dose: 125 mls/hr Magnesium Hydroxide (Milk Of Magnesia) 30 ml PO BID PRN PRN Reason: Constipation Methylprednisolone Sodium Succinate (Solu-Medrol) 125 mg IVPUSH Q8H [facility] Last Admin: 10/10/17 06:01 Dose: 125 mg Metoprolol Tartrate (Lopressor) 12.5 mg PO BID [facility] Last Admin: 10/10/17 08:54 Dose: 12.5 mg Oxycodone/Acetaminophen (Percocet 325-5 Mg) 1 tab PO Q4H PRN PRN Reason: Pain (moderate 4-6) Last Admin: 10/07/17 21:15 Dose: 1 tab Pantoprazole Sodium (Protonix) 40 mg PO ACBREAKFAST [facility] Last Admin: 10/10/17 06:00 Dose: 40 mg Formoterol [ Perforomist] 20 Mcg Pt's Own Med 0 each INH BIDRT [facility] Last Admin: 10/10/17 07:40 Dose: 20 each Ursodiol [Ursodiol] 250 Mg Pt's Own Med 0 each PO TID [facility] Last Admin: 10/10/17 08:59 Dose: 1 each Potassium Chloride (Klor-Con 10) 10 meq PO TIDMEALS [facility] Last Admin: 10/10/17 08:54 Dose: 10 meq Sodium Chloride (Saline Flush) 10 ml FLUSH ASDIRECTED PRN PRN Reason: Keep Vein Open Last Admin: 10/09/17 13:59 Dose: 10 ml Sodium Chloride ([place] Nasal [place]) 0 ml OLIVERIO QID PRN PRN Reason: Congestion Last Admin: 10/09/17 10:04 Dose: 1 spray Tiotropium [place] (Spiriva Handihaler) 18 mcg INH DAILYRT [facility] Last Admin: 10/10/17 08:17 Dose: 1 cap Discontinued Medications Albuterol/Ipratropium (Duoneb 3.0-0.5 Mg/3 Ml) 3 ml NEB ONETIME ONE Stop: 10/07/17 17:08 Last Admin: 10/07/17 17:37 Dose: 3 ml Albuterol/Ipratropium (Duoneb 3.0-0.5 Mg/3 Ml) 3 ml NEB ONETIME ONE Stop: 10/07/17 18:17 Last Admin: 10/07/17 20:23 Dose: Not Given Alprazolam (Xanax) 0.25 mg PO NOW ONE Stop: 10/09/17 15:02 Last Admin: 10/09/17 15:20 Dose: 0.25 mg Piperacillin Sod/Tazobactam (Sod 4.5 gm/ Sodium Chloride) 50 mls @ 100 mls/hr IV ONETIME ONE Stop: 10/07/17 17:36 Last Admin: 10/07/17 17:48 Dose: 100 mls/hr Methylprednisolone Sodium Succinate (Solu-Medrol) 125 mg IVPUSH ONETIME ONE Stop: 10/07/17 17:08 Last Admin: 10/07/17 17:48 Dose: 125 mg Methylprednisolone Sodium Succinate (Solu-Medrol) 40 mg IVPUSH Q6H [facility] Last Admin: 10/09/17 06:15 Dose: 40 mg Non-Formulary Medication (Nicotine Polacrilex [Nicotine Lozenge]) 2 mg BC Q1H PRN PRN Reason: tobacco cessation Potassium Chloride (Klor-Con 10) 30 meq PO DAILY EVER - Exam Quality Assessment: Supplemental Oxygen, DVT Prophylaxis. No: Urine Catheter General: Alert, Oriented, Cooperative, No Acute Distress HEENT: Pupils Equal, Pupils Reactive, Mucous Membr. Moist/[place] Neck: Supple, No JVD, No Thyromegaly. No: Lymphadenopathy Lungs: Clear to Auscultation, Normal Respiratory Effort, Wheezing Cardiovascular: Regular Rate, Regular Rhythm, Murmurs GI/Abdominal Exam: Normal Bowel Sounds, Soft, Non-Tender, No Distention. No: Guarding, Rigid, Rebound (Male) Exam: Deferred Back Exam: Normal Inspection, Full Range of Motion Extremities: Normal Inspection, No Pedal Edema Skin: Warm, Dry, Intact Neurological: No New Focal Deficit Psy/Mental Status: Alert, Normal Affect, Normal Mood - Problem List Review Problem List Initiated/Reviewed/Updated: Yes - My Orders Last 24 Hours: My Active Orders 10/09/17 09:07 Sodium Chloride 0.65% [[place] Nasal [place]] 0 ml OLIVERIO QID PRN 10/09/17 10:42 Dextromethorphan/guaiFENesin [Robitussin DM] 5 ml PO Q4H PRN 10/09/17 14:00 methylPREDNISolone Sod Succ [Solu-MEDROL] 125 mg IVPUSH Q8H - Plan Plan:: This is a 67 Y/M resident of [place], History of smoking with COPD, on home oxygen 3 L/24 hrs, admitted with acute Hypoxic ERespiratory Failure Acute on chronic hypoxic/hypercapnic respiratory failure due to COPD exacebation -improving slowly -continue supplemental oxygen and wean down as tolerated -Continue using Incentive spirometry and flutter valve COPD exacebation - Decrease IV solu-medrol to 80 mg IV q8 hrs [ was at 120 mg q8h] -Continue IV azithromycin -Continue Due-Nebs -Will continue Nasal Saline spray -Will continue Ribitussin 5 ml q6hrs PRN for cough -continue Pulmicort -continue formoterol Sinus Tarchycardia -imrpoved, continue Metoprolol - HTN -BP within acceptable- limits -continue home medication Leukocytosis chronic -To work up folowing discharge by PCP Diet -regular Full code
[2017-10-10] MEDS: Sodium Chloride 0.9% 10 ML Syringe FLUSH PRN (14:35)
[2017-10-10] MEDS ORDERED: Azithromycin 500 MG Vial ONE (19:22)
[2017-10-10] MEDS: ALPRAZolam 0.25 MG Tab PO PRN (20:08)
[2017-10-10] MEDS: Azithromycin 500 MG in Sodium Chloride 0.9% 250 ML IV SCH (20:14)
[2017-10-11] MEDS: Albuterol/Ipratropium 3.0-0.5 MG/3 ML Neb Soln NEB SCH ×6 (02:45→23:11)
[2017-10-11] MEDS: methylPREDNISolone Sodium Succinate 125 MG/2 ML SDV IVPUSH SCH ×4 (05:16→21:47)
[2017-10-11] MEDS: Pantoprazole 40 MG Tab.CR PO SCH (05:18)
[2017-10-11] MEDS: Budesonide 0.5 MG/2 ML Neb Susp NEB SCH ×2 (07:20→18:45)
[2017-10-11 07:25] LABS: ANION GAP 11.1; CHLORIDE,CL 95 mmol/L (101-111); SODIUM,NA 140 mmol/L (135-145)
[2017-10-11] MEDS: Tiotropium Inhaler 18 MCG Inhalation Powder Cap Kit of 5 INH SCH (08:49)
[2017-10-11] MEDS: Fluticasone Propionate Nasal Spray 16 GM Bottle NASBOTH SCH (08:50)
[2017-10-11] MEDS: Metoprolol Tartrate 25 MG Tab PO SCH ×2 (08:53→20:29)
[2017-10-11] MEDS: Potassium Chloride 10 MEQ Tab.ER PO SCH ×3 (08:53→17:29)
[2017-10-11] MEDS: Furosemide 20 MG Tab PO SCH ×2 (08:55→14:47)
[2017-10-11] MEDS: URSODIOL 250 MG PO SCH ×3 (08:57→20:34)
[2017-10-11] MEDS: Heparin Sodium 5,000 Units/ML Vial SUBCUT SCH ×2 (08:59→20:31)
--- NOTE | 2017-10-11 09:45 | PCM.PN ---
- General Info Date of Service: 10/11/17 Admission Dx/Problem (Free Text): Admission Diagnosis/Problem Admission Diagnosis/Problem Acute respiratory failure with hypoxia and yelloe-green productive cough Subjective Update: Patient is 67 y/o former smoker, resident of [facility] with PMH of COPD on home oxygen, HTN. He presented to the ER with SOB x 1 week. This has been getting progressively worse. He was admitted for COPD exacebation. Overall he continue to improve. He still coughing up yellow sputum but much improved. ow on 3 L of oxygen and still has dyspnea with minor exertion, 02 sat drops to 80's going from bed to bathroom. He was noted to have mild wheezing this morning. Functional Status: Reports: Pain Controlled, Tolerating Diet, Ambulating, Urinating, Incentive Spirometry - Review of Systems General: Reports: No Symptoms HEENT: Reports: No Symptoms Pulmonary: Reports: Shortness of Breath, Cough, Wheezing Cardiovascular: Reports: No Symptoms Gastrointestinal: Reports: No Symptoms Genitourinary: Reports: No Symptoms Musculoskeletal: Reports: No Symptoms Skin: Reports: No Symptoms Neurological: Reports: No Symptoms Psychiatric: Reports: No Symptoms - Patient Data Vitals - Most Recent: Last Vital Signs Temp 97.9 F 10/11/17 07:41 Pulse 91 10/11/17 08:53 Resp 20 10/11/17 07:41 BP 121/77 10/11/17 08:53 Pulse Ox 98 10/11/17 07:41 Weight - Most Recent: 182 lb 3.2 oz I&O - Last 24 Hours: Intake & Output 10/10/17 10/11/17 10/11/17 22:59 06:59 14:59 Intake Total 360 325 Output Total 400 Balance -40 325 Lab Results Last 24 Hours: Laboratory Results - last 24 hr 10/11/17 10/11/17 Range/Units 06:50 06:50 WBC 13.0 H (5.0-10.0) 10^3/uL RBC 3.88 L (4.6-6.2) 10^6/uL Hgb 9.0 L D (14.0-18.0) g/dL Hct 31.5 L (40.0-54.0) % MCV 81.2 (80-100) fL MCH 23.2 L (27.0-34.0) pg MCHC 28.6 L (33.0-35.0) g/dL Plt Count 294 (150-450) 10^3/uL Sodium 140 (135-145) mmol/L Potassium 4.1 (3.6-5.0) mmol/L Chloride 95 L (101-111) mmol/L Carbon Dioxide 38.0 H (21.0-31.0) mmol/L Anion Gap 11.1 BUN 23 H (7-18) mg/dL Creatinine 0.8 (0.6-1.3) mg/dL Est Cr Clr Drug Dosing 79.75 mL/min Estimated GFR (MDRD) > 60 Glucose 200 H (74-105) mg/dL Calcium 8.1 L (8.4-10.2) mg/dl Chirag Results Last 24 Hours: Microbiology 10/07/17 17:16 Aerobic Blood Culture - Preliminary Blood - Venous NO GROWTH AFTER 3 DAYS Anaerobic Blood Culture - Preliminary NO GROWTH AFTER 3 DAYS 10/07/17 17:21 Aerobic Blood Culture - Preliminary Blood - Venous - Lab Draw NO GROWTH AFTER 3 DAYS Anaerobic Blood Culture - Preliminary NO GROWTH AFTER 3 DAYS Med Orders - Current: Current Medications Acetaminophen (Tylenol) 650 mg PO Q4H PRN PRN Reason: Pain (mild 1-3 )/fever Al Hydroxide/Mg Hydroxide (Mag-Al Plus) 30 ml PO Q4H PRN PRN Reason: Dyspepsia Albuterol/Ipratropium (Duoneb 3.0-0.5 Mg/3 Ml) 3 ml NEB Q4HRRT [facility] Last Admin: 10/11/17 07:20 Dose: 3 ml Alprazolam (Xanax) 0.25 mg PO BEDTIME PRN PRN Reason: Anxiety Last Admin: 10/10/17 20:08 Dose: 0.25 mg Bisacodyl (Dulcolax) 10 mg RECTAL DAILY PRN PRN Reason: Constipation Budesonide (Pulmicort) 0.5 mg NEB BIDRT [facility] Last Admin: 10/11/17 07:20 Dose: 0.5 mg Calcium Carbonate/Glycine (Tums) 500 mg PO Q8H PRN PRN Reason: Heartburn Docusate Sodium (Colace) 100 mg PO DAILY PRN PRN Reason: Constipation Fluticasone Propionate (Flonase) 0 gm NASBOTH DAILY [facility] Last Admin: 10/11/17 08:50 Dose: 1 spray Furosemide (Lasix) 20 mg PO BIDDIURETIC [facility] Last Admin: 10/11/17 08:55 Dose: 20 mg Guaifenesin/Phenylephrine HCl (Robitussin Dm) 5 ml PO Q4H PRN PRN Reason: Congestion Heparin Sodium (Porcine) (Heparin Sodium) 5,000 units SUBCUT Q12H [facility] Last Admin: 10/11/17 08:59 Dose: 5,000 units Azithromycin 500 mg/ Sodium (Chloride) 250 mls @ 250 mls/hr IV Q24H [facility] Last Infusion: 10/10/17 21:36 Dose: Infused Magnesium Hydroxide (Milk Of Magnesia) 30 ml PO BID PRN PRN Reason: Constipation Methylprednisolone Sodium Succinate (Solu-Medrol) 40 mg IVPUSH Q8H [facility] Metoprolol Tartrate (Lopressor) 12.5 mg PO BID [facility] Last Admin: 10/11/17 08:53 Dose: 12.5 mg Oxycodone/Acetaminophen (Percocet 325-5 Mg) 1 tab PO Q4H PRN PRN Reason: Pain (moderate 4-6) Last Admin: 10/07/17 21:15 Dose: 1 tab Pantoprazole Sodium (Protonix) 40 mg PO ACBREAKFAST [facility] Last Admin: 10/11/17 05:18 Dose: 40 mg Formoterol [ Perforomist] 20 Mcg Pt's Own Med 0 each INH BIDRT [facility] Last Admin: 10/10/17 19:10 Dose: 20 each Ursodiol [Ursodiol] 250 Mg Pt's Own Med 0 each PO TID [facility] Last Admin: 10/11/17 08:57 Dose: 1 each Potassium Chloride (Klor-Con 10) 10 meq PO TIDMEALS [facility] Last Admin: 10/11/17 08:53 Dose: 10 meq Sodium Chloride (Saline Flush) 10 ml FLUSH ASDIRECTED PRN PRN Reason: Keep Vein Open Last Admin: 10/10/17 14:35 Dose: 10 ml Sodium Chloride ([place] Nasal [place]) 0 ml OLIVERIO QID PRN PRN Reason: Congestion Last Admin: 10/09/17 10:04 Dose: 1 spray Tiotropium [place] (Spiriva Handihaler) 18 mcg INH DAILYRT [facility] Last Admin: 10/11/17 08:49 Dose: 18 cap Discontinued Medications Albuterol/Ipratropium (Duoneb 3.0-0.5 Mg/3 Ml) 3 ml NEB ONETIME ONE Stop: 10/07/17 17:08 Last Admin: 10/07/17 17:37 Dose: 3 ml Albuterol/Ipratropium (Duoneb 3.0-0.5 Mg/3 Ml) 3 ml NEB ONETIME ONE Stop: 10/07/17 18:17 Last Admin: 10/07/17 20:23 Dose: Not Given Alprazolam (Xanax) 0.25 mg PO NOW ONE Stop: 10/09/17 15:02 Last Admin: 10/09/17 15:20 Dose: 0.25 mg Azithromycin (Zithromax) Confirm Administered Dose 500 mg .ROUTE .STK-MED ONE Stop: 10/10/17 19:23 Last Admin: 10/10/17 20:49 Dose: Not Given Piperacillin Sod/Tazobactam (Sod 4.5 gm/ Sodium Chloride) 50 mls @ 100 mls/hr IV ONETIME ONE Stop: 10/07/17 17:36 Last Admin: 10/07/17 17:48 Dose: 100 mls/hr Methylprednisolone Sodium Succinate (Solu-Medrol) 125 mg IVPUSH ONETIME ONE Stop: 10/07/17 17:08 Last Admin: 10/07/17 17:48 Dose: 125 mg Methylprednisolone Sodium Succinate (Solu-Medrol) 40 mg IVPUSH Q6H [facility] Last Admin: 10/09/17 06:15 Dose: 40 mg Methylprednisolone Sodium Succinate (Solu-Medrol) 125 mg IVPUSH Q8H [facility] Last Admin: 10/10/17 06:01 Dose: 125 mg Methylprednisolone Sodium Succinate (Solu-Medrol) 80 mg IVPUSH Q8H [facility] Last Admin: 10/11/17 05:16 Dose: 80 mg Non-Formulary Medication (Nicotine Polacrilex [Nicotine Lozenge]) 2 mg BC Q1H PRN PRN Reason: tobacco cessation Potassium Chloride (Klor-Con 10) 30 meq PO DAILY EVER - Exam Quality Assessment: Supplemental Oxygen, DVT Prophylaxis General: Alert, Oriented HEENT: Pupils Equal, Pupils Reactive, EOMI, Mucous Membr. Moist/Rudy Neck: Supple Lungs: Normal Respiratory Effort, Wheezing Cardiovascular: Regular Rate, Regular Rhythm GI/Abdominal Exam: Normal Bowel Sounds, Soft, Non-Tender, No Organomegaly, No Distention, No Abnormal Bruit, No Mass, Pelvis Stable (Male) Exam: No Hernia, Normal Inspection, Normal Prostate, Circumcised Back Exam: Normal Inspection, Full Range of Motion Extremities: Normal Inspection, Normal Range of Motion, Non-Tender, No Pedal Edema, Normal Capillary Refill Skin: Warm, Dry, Intact Wound/Incisions: Healing Well Neurological: No New Focal Deficit Psy/Mental Status: Alert, Normal Affect, Normal Mood - Problem List & Annotations (1) Hypercapnic respiratory failure SNOMED Code(s): 239019794 Code(s): J96.92 - RESPIRATORY FAILURE, UNSPECIFIED WITH HYPERCAPNIA Status : Acute Current Visit: Yes (2) Acute respiratory failure with hypoxia SNOMED Code(s): 50203354, 226286954 Code(s): J96.01 - ACUTE RESPIRATORY FAILURE WITH HYPOXIA Status: Acute Current Visit: Yes (3) Acute and chronic respiratory failure ([id number]) SNOMED Code(s): 13338881 Code(s): J96.20 - ACUTE AND CHR RESP FAILURE, UNSP W HYPOXIA OR HYPERCAPNIA Status: Acute Priority: High Current Visit: No Onset Date: 07/05/15 Qualifiers: Respiratory failure complication: hypoxia Qualified Code(s): J96.21 - Acute and chronic respiratory failure with hypoxia (4) Acute exacerbation of chronic obstructive pulmonary disease (COPD) SNOMED Code(s): 996112724 Code(s): J44.1 - CHRONIC OBSTRUCTIVE PULMONARY DISEASE W (ACUTE) EXACERBATION Status: Acute Priority: High Current Visit: No Onset Date: 07/05/15 (5) Leukocytosis SNOMED Code(s): 163984799, 123606379 Code(s): D72.829 - ELEVATED WHITE BLOOD CELL COUNT, UNSPECIFIED Status: Acute Current Visit: No Qualifiers: Leukocytosis type: unspecified Qualified Code(s): D72.829 - Elevated white blood cell count, unspecified - Problem List Review Problem List Initiated/Reviewed/Updated: Yes - My Orders Last 24 Hours: My Active Orders 10/11/17 08:43 methylPREDNISolone Sod Succ [Solu-MEDROL] 40 mg IVPUSH Q8H - Plan Plan:: This is a 67 Y/M resident of [place], History of smoking with COPD, on home oxygen 3 L/24 hrs, admitted with acute Hypoxic Respiratory Failure Acute on chronic hypoxic/hypercapnic respiratory failure due to COPD exacebation -improving slowly -continue supplemental oxygen. PAtient back to his baseline oxygen requirement -Continue using Incentive spirometry and flutter valve COPD exacebation - Decrease IV solu-medrol to 40 mg IV q8 hrs -PO azithromycin x 3 days -Continue Due-Nebs -Will continue Nasal Saline spray -Will continue Ribitussin 5 ml q6hrs PRN for cough -continue Pulmicort -continue formoterol Sinus Tarchycardia -Resolved Hyperglycemia -this is due to steroid -Insulin sliding scale -accuchek 4x daily HTN -BP within acceptable- limits -continue current care Leukocytosis chronic -Now resolved Diet -regular Full code Disposition -for possible discharge tomorrow back to [place]
[2017-10-11] MEDS: FORMOTEROL 20 MCG INH SCH ×3 (11:25→18:45)
[2017-10-11] MEDS: Insulin Aspart 100 Units/ML 3 ML Pen SUBCUT SCH ×3 (11:36→20:33)
[2017-10-11] MEDS: Sodium Chloride 0.65% Nasal Spray 45 ML Bottle NAS PRN (13:28)
[2017-10-11] MEDS: Sodium Chloride 0.9% 10 ML Syringe FLUSH PRN (13:30)
[2017-10-11] MEDS: guaiFENesin/Dextromethorphan 100-10 MG/5 ML Soln 5 ML Cup PO PRN ×2 (13:31→17:29)
[2017-10-11] MEDS: Benzocaine/Cetylpyridinium/Menthol Lozenge MUCMEM PRN (17:29)
[2017-10-11] MEDS: Azithromycin 500 MG in Sodium Chloride 0.9% 250 ML IV SCH (20:44)
[2017-10-12] MEDS: Sodium Chloride 0.65% Nasal Spray 45 ML Bottle NAS PRN ×2 (03:13→22:49)
[2017-10-12] MEDS: Albuterol/Ipratropium 3.0-0.5 MG/3 ML Neb Soln NEB SCH ×6 (03:14→22:45)
[2017-10-12] MEDS: methylPREDNISolone Sodium Succinate 125 MG/2 ML SDV IVPUSH SCH (05:10)
[2017-10-12] MEDS: Pantoprazole 40 MG Tab.CR PO SCH (05:10)
[2017-10-12] MEDS: Budesonide 0.5 MG/2 ML Neb Susp NEB SCH ×2 (07:17→18:51)
[2017-10-12] MEDS: FORMOTEROL 20 MCG INH SCH ×2 (07:18→18:51)
[2017-10-12] MEDS: Tiotropium Inhaler 18 MCG Inhalation Powder Cap Kit of 5 INH SCH (07:43)
[2017-10-12] MEDS: Furosemide 20 MG Tab PO SCH (07:43)
[2017-10-12] MEDS: Potassium Chloride 10 MEQ Tab.ER PO SCH ×3 (07:43→17:23)
[2017-10-12] MEDS: Heparin Sodium 5,000 Units/ML Vial SUBCUT SCH ×2 (07:45→20:34)
[2017-10-12] MEDS: Fluticasone Propionate Nasal Spray 16 GM Bottle NASBOTH SCH (08:04)
[2017-10-12] MEDS: Metoprolol Tartrate 25 MG Tab PO SCH ×2 (08:05→20:41)
[2017-10-12] MEDS: URSODIOL 250 MG PO SCH ×3 (08:06→23:01)
[2017-10-12] MEDS: Insulin Aspart 100 Units/ML 3 ML Pen SUBCUT SCH ×4 (08:07→20:54)
[2017-10-12] MEDS ORDERED: Furosemide 40 MG/4 ML VIAL IVPUSH ONE (09:45)
--- NOTE | 2017-10-12 09:54 | PCM.PN ---
- General Info Date of Service: 10/12/17 Admission Dx/Problem (Free Text): Admission Diagnosis/Problem Admission Diagnosis/Problem Acute respiratory failure with hypoxia and yelloe-green productive cough Subjective Update: Patient is 67 y/o former smoker, resident of [facility] with PMH of COPD on home oxygen, HTN. He presented to the ER with SOB x 1 week. This has been getting progressively worse. He was admitted for COPD exacebation. Today patient notes SOB got worse overnight. oxygen was increased to 4.5 L but decreased to 4 L now. He feels a little better but still not back to his baseline. His weight increase by 3 Ib this morning. He still coughing up yellow sputum but much improved. Still has dyspnea with minimal exertion, 02 sat drops to 80's going from bed to bathroom. He was noted to have mild wheezing this morning. Functional Status: Reports: Pain Controlled - Review of Systems General: Reports: Weakness, Fatigue HEENT: Reports: No Symptoms Pulmonary: Reports: Shortness of Breath, Cough, Wheezing Cardiovascular: Reports: No Symptoms Gastrointestinal: Reports: Diarrhea Genitourinary: Reports: No Symptoms Musculoskeletal: Reports: No Symptoms Skin: Reports: No Symptoms Neurological: Reports: No Symptoms Psychiatric: Reports: No Symptoms - Patient Data Vitals - Most Recent: Last Vital Signs Temp 98.3 F 10/12/17 07:55 Pulse 92 10/12/17 08:05 Resp 20 10/12/17 07:55 BP 130/76 10/12/17 08:05 Pulse Ox 92 L 10/12/17 07:55 Weight - Most Recent: 185 lb I&O - Last 24 Hours: Intake & Output 10/11/17 10/12/17 10/12/17 22:59 06:59 14:59 Output Total 310 600 Balance -310 -600 Lab Results Last 24 Hours: Laboratory Results - last 24 hr 10/11/17 10/11/17 10/11/17 Range/Units 11:08 17:09 20:31 POC Glucose 260 H 205 H 292 H (70-105) mg/dl 10/12/17 Range/Units 07:32 POC Glucose 198 H (70-105) mg/dl Chirag Results Last 24 Hours: Microbiology 10/07/17 17:16 Aerobic Blood Culture - Preliminary Blood - Venous NO GROWTH AFTER 4 DAYS Anaerobic Blood Culture - Preliminary NO GROWTH AFTER 4 DAYS 10/07/17 17:21 Aerobic Blood Culture - Preliminary Blood - Venous - Lab Draw NO GROWTH AFTER 4 DAYS Anaerobic Blood Culture - Preliminary NO GROWTH AFTER 4 DAYS Med Orders - Current: Current Medications Acetaminophen (Tylenol) 650 mg PO Q4H PRN PRN Reason: Pain (mild 1-3 )/fever Al Hydroxide/Mg Hydroxide (Mag-Al Plus) 30 ml PO Q4H PRN PRN Reason: Dyspepsia Albuterol/Ipratropium (Duoneb 3.0-0.5 Mg/3 Ml) 3 ml NEB Q4HRRT [facility] Last Admin: 10/12/17 07:17 Dose: 3 ml Alprazolam (Xanax) 0.25 mg PO BEDTIME PRN PRN Reason: Anxiety Last Admin: 10/10/17 20:08 Dose: 0.25 mg Benzocaine/Menthol (Cepacol Sore Throat) 1 lozenge MUCMEM Q6HR PRN PRN Reason: Sore Throat Last Admin: 10/11/17 17:29 Dose: 1 lozenge Bisacodyl (Dulcolax) 10 mg RECTAL DAILY PRN PRN Reason: Constipation Budesonide (Pulmicort) 0.5 mg NEB BIDRT [facility] Last Admin: 10/12/17 07:17 Dose: 0.5 mg Calcium Carbonate/Glycine (Tums) 500 mg PO Q8H PRN PRN Reason: Heartburn Docusate Sodium (Colace) 100 mg PO DAILY PRN PRN Reason: Constipation Fluticasone Propionate (Flonase) 0 gm NASBOTH DAILY [facility] Last Admin: 10/12/17 08:04 Dose: 1 spray Furosemide (Lasix) 40 mg IVPUSH Q12H [facility] Guaifenesin/Phenylephrine HCl (Robitussin Dm) 5 ml PO Q4H PRN PRN Reason: Congestion Last Admin: 10/11/17 17:29 Dose: 5 ml Heparin Sodium (Porcine) (Heparin Sodium) 5,000 units SUBCUT Q12H [facility] Last Admin: 10/12/17 07:45 Dose: 5,000 units Azithromycin 500 mg/ Sodium (Chloride) 250 mls @ 250 mls/hr IV Q24H [facility] Last Infusion: 10/11/17 22:33 Dose: Infused Insulin Aspart (Novolog) 0 unit SUBCUT QIDACANDBED [facility]; Protocol Last Admin: 10/12/17 08:07 Dose: 2 units Magnesium Hydroxide (Milk Of Magnesia) 30 ml PO BID PRN PRN Reason: Constipation Methylprednisolone Sodium Succinate (Solu-Medrol) 40 mg IVPUSH Q8HR [facility] Last Admin: 10/12/17 05:10 Dose: 40 mg Metoprolol Tartrate (Lopressor) 12.5 mg PO BID [facility] Last Admin: 10/12/17 08:05 Dose: 12.5 mg Oxycodone/Acetaminophen (Percocet 325-5 Mg) 1 tab PO Q4H PRN PRN Reason: Pain (moderate 4-6) Last Admin: 10/07/17 21:15 Dose: 1 tab Pantoprazole Sodium (Protonix) 40 mg PO ACBREAKFAST [facility] Last Admin: 10/12/17 05:10 Dose: 40 mg Formoterol [ Perforomist] 20 Mcg Pt's Own Med 0 each INH BIDRT [facility] Last Admin: 10/12/17 07:18 Dose: Not Given Ursodiol [Ursodiol] 250 Mg Pt's Own Med 0 each PO TID [facility] Last Admin: 10/12/17 08:06 Dose: 1 each Potassium Chloride (Klor-Con 10) 10 meq PO TIDMEALS [facility] Last Admin: 10/12/17 07:43 Dose: 10 meq Sodium Chloride (Saline Flush) 10 ml FLUSH ASDIRECTED PRN PRN Reason: Keep Vein Open Last Admin: 10/11/17 13:30 Dose: 10 ml Sodium Chloride ([place] Nasal [place]) 0 ml OLIVERIO QID PRN PRN Reason: Congestion Last Admin: 10/12/17 03:13 Dose: 4 spray Tiotropium [place] (Spiriva Handihaler) 18 mcg INH DAILYRT [facility] Last Admin: 10/12/17 07:43 Dose: 1 cap Discontinued Medications Albuterol/Ipratropium (Duoneb 3.0-0.5 Mg/3 Ml) 3 ml NEB ONETIME ONE Stop: 10/07/17 17:08 Last Admin: 10/07/17 17:37 Dose: 3 ml Albuterol/Ipratropium (Duoneb 3.0-0.5 Mg/3 Ml) 3 ml NEB ONETIME ONE Stop: 10/07/17 18:17 Last Admin: 10/07/17 20:23 Dose: Not Given Alprazolam (Xanax) 0.25 mg PO NOW ONE Stop: 10/09/17 15:02 Last Admin: 10/09/17 15:20 Dose: 0.25 mg Azithromycin (Zithromax) Confirm Administered Dose 500 mg .ROUTE .STK-MED ONE Stop: 10/10/17 19:23 Last Admin: 10/10/17 20:49 Dose: Not Given Furosemide (Lasix) 20 mg PO BIDDIURETIC EVER Last Admin: 10/12/17 07:43 Dose: 20 mg Furosemide (Lasix) 40 mg IVPUSH ONETIME ONE Stop: 10/12/17 09:46 Piperacillin Sod/Tazobactam (Sod 4.5 gm/ Sodium Chloride) 50 mls @ 100 mls/hr IV ONETIME ONE Stop: 10/07/17 17:36 Last Admin: 10/07/17 17:48 Dose: 100 mls/hr Methylprednisolone Sodium Succinate (Solu-Medrol) 125 mg IVPUSH ONETIME ONE Stop: 10/07/17 17:08 Last Admin: 10/07/17 17:48 Dose: 125 mg Methylprednisolone Sodium Succinate (Solu-Medrol) 40 mg IVPUSH Q6H [facility] Last Admin: 10/09/17 06:15 Dose: 40 mg Methylprednisolone Sodium Succinate (Solu-Medrol) 125 mg IVPUSH Q8H [facility] Last Admin: 10/10/17 06:01 Dose: 125 mg Methylprednisolone Sodium Succinate (Solu-Medrol) 80 mg IVPUSH Q8H [facility] Last Admin: 10/11/17 05:16 Dose: 80 mg Non-Formulary Medication (Nicotine Polacrilex [Nicotine Lozenge]) 2 mg BC Q1H PRN PRN Reason: tobacco cessation Potassium Chloride (Klor-Con 10) 30 meq PO DAILY [facility] - Exam Quality Assessment: Supplemental Oxygen, DVT Prophylaxis General: Alert, Oriented HEENT: Pupils Equal, Pupils Reactive, EOMI, Mucous Membr. Moist/[place] Neck: Supple Lungs: Normal Respiratory Effort, Wheezing Cardiovascular: Regular Rate, Regular Rhythm GI/Abdominal Exam: Normal Bowel Sounds, Soft, Non-Tender, No Organomegaly, No Distention, No Abnormal Bruit, No Mass, Pelvis Stable, Other (percutaneous cholecystostomy tube in place) (Male) Exam: No Hernia, Normal Inspection, Normal Prostate, Circumcised Back Exam: Normal Inspection, Full Range of Motion Extremities: Normal Inspection, Normal Range of Motion, Non-Tender, No Pedal Edema, Normal Capillary Refill Skin: Warm, Dry, Intact Wound/Incisions: Healing Well Neurological: No New Focal Deficit Psy/Mental Status: Alert, Normal Affect, Normal Mood - Problem List & Annotations (1) Hypercapnic respiratory failure SNOMED Code(s): 339646808 Code(s): J96.92 - RESPIRATORY FAILURE, UNSPECIFIED WITH HYPERCAPNIA Status : Acute Current Visit: Yes (2) Acute respiratory failure with hypoxia SNOMED Code(s): 77887602, 125590770 Code(s): J96.01 - ACUTE RESPIRATORY FAILURE WITH HYPOXIA Status: Acute Current Visit: Yes (3) Acute and chronic respiratory failure (plctu-po-xuxmacy) SNOMED Code(s): 40429540 Code(s): J96.20 - ACUTE AND CHR RESP FAILURE, UNSP W HYPOXIA OR HYPERCAPNIA Status: Acute Priority: High Current Visit: No Onset Date: 07/05/15 Qualifiers: Respiratory failure complication: hypoxia Qualified Code(s): J96.21 - Acute and chronic respiratory failure with hypoxia (4) Acute exacerbation of chronic obstructive pulmonary disease (COPD) SNOMED Code(s): 250053860 Code(s): J44.1 - CHRONIC OBSTRUCTIVE PULMONARY DISEASE W (ACUTE) EXACERBATION Status: Acute Priority: High Current Visit: No Onset Date: 07/05/15 (5) Leukocytosis SNOMED Code(s): 931087664, 592644427 Code(s): D72.829 - ELEVATED WHITE BLOOD CELL COUNT, UNSPECIFIED Status: Acute Current Visit: No Qualifiers: Leukocytosis type: unspecified Qualified Code(s): D72.829 - Elevated white blood cell count, unspecified - Problem List Review Problem List Initiated/Reviewed/Updated: Yes - My Orders Last 24 Hours: My Active Orders 10/11/17 11:00 Insulin Aspart [NovoLOG] See Protocol SUBCUT QIDACANDBED 10/11/17 16:42 Benzocaine/Cetylpyrd/Menthol [Cepacol Sore Throat] 1 lozenge MUCMEM Q6HR PRN 10/12/17 09:32 B-TYPE NATRIURETIC PEPTIDE,BNP [CHEM] Routine BASIC METABOLIC PANEL,BMP [CHEM] Routine C DIFFICILE TOXIN BY PCR [MREF] Routine MAGNESIUM [CHEM] Routine PHOSPHORUS [CHEM] Routine 10/12/17 09:34 CBC W/O DIFF,HEMOGRAM [HEME] Routine 10/12/17 09:35 OT Evaluation and Treatment [CONS] Routine PT Evaluation and Treatment [CONS] Routine 10/12/17 18:00 Furosemide [Lasix] 40 mg IVPUSH Q12H - Plan Plan:: This is a 67 Y/M resident of [place], History of smoking with COPD, on home oxygen 3 L/24 hrs, admitted with acute Hypoxic Respiratory Failure. He is still requiring oxgen at 4 L via [place]. Baseline is 3 L. He gets SOB with minimal exertion. He notes diarrhea Acute diarrhea -likely C. diff given abx use -stool for C. diff Hypomagnesemia -will replace IV Acute on chronic hypoxic/hypercapnic respiratory failure due to COPD exacebation -improving slowly -continue supplemental oxygen. Patient not back to his baseline oxygen requirement -Continue using Incentive spirometry and flutter valve -will start IV lasix 40 mg bid for diuresis -send for bnp. Repeat bmp,cbc, mag, phos COPD exacebation -IV solu-medrol to 40 mg IV q8 hrs -PO azithromycin x 3 days -Continue Due-Nebs -Will continue Nasal Saline spray -Will continue Ribitussin 5 ml q6hrs PRN for cough -continue Pulmicort -continue formoterol Sinus Tarchycardia -Resolved Hyperglycemia -this is due to steroid -Insulin sliding scale -accuchek 4x daily HTN -BP within acceptable- limits -continue current care Leukocytosis chronic -Now resolved Diet -regular Full code Disposition -for possible discharge tomorrow back to [place]
[2017-10-12 10:48] LABS: CHLORIDE,CL 93 mmol/L (101-111); SODIUM,NA 139 mmol/L (135-145)
[2017-10-12] MEDS ORDERED: Magnesium Sulfate/Water 4 GM in Premix Bag 1 BAG IV ONE (11:02)
[2017-10-12] MEDS ORDERED: Insulin Detemir 100 Units/ML 3 ML Pen SUBCUT ONE (11:30)
[2017-10-12] MEDS: Magnesium Sulfate/Water 2 GM in Premix Bag 1 BAG IV SCH ×2 (12:51→14:31)
--- NOTE | 2017-10-12 13:53 | EKG ---
10/07/2017 - MELE MONTEZ - TIME: 5:19 p.m. 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 [facility] /[id number]
--- NOTE | 2017-10-12 13:53 | EKG ---
10/07/2017 - MELE MONTEZ - TIME: 5:19 p.m. FINDINGS: As per my reading, sinus tachycardia at 124, probable lateral infarct. [facility] /[id number]
[2017-10-12] MEDS: Benzocaine/Cetylpyridinium/Menthol Lozenge MUCMEM PRN (14:51)
[2017-10-12] MEDS: methylPREDNISolone Sodium Succinate 40 MG/1 ML SDV IVPUSH SCH ×2 (14:51→22:42)
[2017-10-12] MEDS: Furosemide 40 MG/4 ML VIAL IVPUSH SCH (17:21)
[2017-10-12] MEDS: Azithromycin 500 MG in Sodium Chloride 0.9% 250 ML IV SCH (20:36)
[2017-10-12] MEDS: Sodium Chloride 0.9% 10 ML Syringe FLUSH PRN ×2 (20:36→22:41)
[2017-10-12] MEDS: Insulin Detemir 100 Units/ML 3 ML Pen SUBCUT SCH (20:56)
[2017-10-13] MEDS: Acetaminophen/oxyCODONE 325-5 MG Tab PO PRN ×2 (02:26→08:41)
[2017-10-13] MEDS: Albuterol/Ipratropium 3.0-0.5 MG/3 ML Neb Soln NEB SCH ×6 (02:28→22:56)
[2017-10-13] MEDS: Benzocaine/Cetylpyridinium/Menthol Lozenge MUCMEM PRN (02:34)
[2017-10-13] MEDS: Pantoprazole 40 MG Tab.CR PO SCH (05:33)
[2017-10-13] MEDS: Sodium Chloride 0.9% 10 ML Syringe FLUSH PRN ×2 (05:34→21:08)
[2017-10-13] MEDS: methylPREDNISolone Sodium Succinate 40 MG/1 ML SDV IVPUSH SCH ×3 (05:35→22:56)
[2017-10-13] MEDS: Furosemide 40 MG/4 ML VIAL IVPUSH SCH (05:35)
[2017-10-13] MEDS: FORMOTEROL 20 MCG INH SCH ×2 (07:08→18:44)
[2017-10-13] MEDS: Budesonide 0.5 MG/2 ML Neb Susp NEB SCH ×2 (07:08→18:44)
[2017-10-13] MEDS: Metoprolol Tartrate 25 MG Tab PO SCH ×2 (08:41→21:04)
[2017-10-13] MEDS: Insulin Detemir 100 Units/ML 3 ML Pen SUBCUT SCH ×2 (08:41→21:19)
[2017-10-13] MEDS: Potassium Chloride 10 MEQ Tab.ER PO SCH ×3 (08:41→17:20)
[2017-10-13] MEDS: Insulin Aspart 100 Units/ML 3 ML Pen SUBCUT SCH ×4 (08:42→21:18)
[2017-10-13] MEDS: Fluticasone Propionate Nasal Spray 16 GM Bottle NASBOTH SCH (08:43)
[2017-10-13] MEDS: Heparin Sodium 5,000 Units/ML Vial SUBCUT SCH ×2 (08:43→21:05)
[2017-10-13] MEDS: URSODIOL 250 MG PO SCH ×2 (08:44→14:24)
[2017-10-13] MEDS: Tiotropium Inhaler 18 MCG Inhalation Powder Cap Kit of 5 INH SCH (08:55)
--- NOTE | 2017-10-13 10:20 | PCM.PN ---
- General Info Date of Service: 10/13/17 Admission Dx/Problem (Free Text): Admission Diagnosis/Problem Admission Diagnosis/Problem Acute respiratory failure with hypoxia and yelloe-green productive cough Subjective Update: Patient is 67 y/o former smoker, resident of [facility] with PMH of COPD on home oxygen, HTN. He presented to the ER with SOB x 1 week. This has been getting progressively worse. He was admitted for COPD exacebation. Today patient said he feels better than yesterday. Oxygen decreased to 3 L this morning. This is his baseline. He was started on IV lasix yesterday and he says he is putting a lot of urine. I switched to PO lasix this morning. Cough has improved. Still has dyspnea with minimal exertion, 02 sat drops to 80's going from bed to bathroom. But overall he seems to be getting to his baseline. He was noted to have mild scattered wheeze on exam this morning. Functional Status: Reports: Pain Controlled - Review of Systems General: Reports: Weakness HEENT: Reports: No Symptoms Pulmonary: Reports: Shortness of Breath, Cough, Wheezing Cardiovascular: Reports: No Symptoms Gastrointestinal: Reports: No Symptoms Genitourinary: Reports: No Symptoms Musculoskeletal: Reports: No Symptoms Skin: Reports: No Symptoms Neurological: Reports: No Symptoms Psychiatric: Reports: No Symptoms - Patient Data Vitals - Most Recent: Last Vital Signs Temp 97.3 F 10/13/17 08:09 Pulse 94 10/13/17 08:41 Resp 20 10/13/17 08:09 BP 140/77 10/13/17 08:41 Pulse Ox 97 10/13/17 08:09 Weight - Most Recent: 182 lb 12.8 oz I&O - Last 24 Hours: Intake & Output 10/12/17 10/13/17 10/13/17 22:59 06:59 14:59 Intake Total 1240 200 Output Total 2100 520 Balance -860 -320 Lab Results Last 24 Hours: Laboratory Results - last 24 hr 10/12/17 10/12/17 10/12/17 Range/Units 10:21 10:21 11:07 WBC 13.9 H (5.0-10.0) 10^3/uL RBC 3.99 L (4.6-6.2) 10^6/uL Hgb 9.3 L (14.0-18.0) g/dL Hct 32.7 L (40.0-54.0) % MCV 82.0 (80-100) fL MCH 23.3 L (27.0-34.0) pg MCHC 28.4 L (33.0-35.0) g/dL Plt Count 313 (150-450) 10^3/uL Sodium 139 (135-145) mmol/L Potassium 4.0 (3.6-5.0) mmol/L Chloride 93 L (101-111) mmol/L Carbon Dioxide 38.0 H (21.0-31.0) mmol/L Anion Gap 12.0 BUN 27 H (7-18) mg/dL Creatinine 0.8 (0.6-1.3) mg/dL Est Cr Clr Drug Dosing 79.75 mL/min Estimated GFR (MDRD) > 60 Glucose 301 H (74-105) mg/dL POC Glucose 259 H (70-105) mg/dl Calcium 7.8 L (8.4-10.2) mg/dl Phosphorus 3.1 (2.5-4.6) mg/dL Magnesium 1.7 L (1.8-2.5) mg/dL B-Natriuretic Peptide 156 H (0-100) pg/ml 10/12/17 10/12/17 10/13/17 Range/Units 17:02 20:43 07:52 WBC (5.0-10.0) 10^3/uL RBC (4.6-6.2) 10^6/uL Hgb (14.0-18.0) g/dL Hct (40.0-54.0) % MCV (80-100) fL MCH (27.0-34.0) pg MCHC (33.0-35.0) g/dL Plt Count (150-450) 10^3/uL Sodium (135-145) mmol/L Potassium (3.6-5.0) mmol/L Chloride (101-111) mmol/L Carbon Dioxide (21.0-31.0) mmol/L Anion Gap BUN (7-18) mg/dL Creatinine (0.6-1.3) mg/dL Est Cr Clr Drug Dosing mL/min Estimated GFR (MDRD) Glucose (74-105) mg/dL POC Glucose 290 H 323 H 177 H (70-105) mg/dl Calcium (8.4-10.2) mg/dl Phosphorus (2.5-4.6) mg/dL Magnesium (1.8-2.5) mg/dL B-Natriuretic Peptide (0-100) pg/ml Chirag Results Last 24 Hours: Microbiology 10/07/17 17:21 Aerobic Blood Culture - Final Blood - Venous - Lab Draw NO GROWTH AFTER 5 DAYS Anaerobic Blood Culture - Final NO GROWTH AFTER 5 DAYS 10/07/17 17:16 Aerobic Blood Culture - Final Blood - Venous NO GROWTH AFTER 5 DAYS Anaerobic Blood Culture - Final NO GROWTH AFTER 5 DAYS Med Orders - Current: Current Medications Acetaminophen (Tylenol) 650 mg PO Q4H PRN PRN Reason: Pain (mild 1-3 )/fever Al Hydroxide/Mg Hydroxide (Mag-Al Plus) 30 ml PO Q4H PRN PRN Reason: Dyspepsia Albuterol/Ipratropium (Duoneb 3.0-0.5 Mg/3 Ml) 3 ml NEB Q4HRRT [facility] Last Admin: 10/13/17 07:08 Dose: 3 ml Alprazolam (Xanax) 0.25 mg PO BEDTIME PRN PRN Reason: Anxiety Last Admin: 10/10/17 20:08 Dose: 0.25 mg Benzocaine/Menthol (Cepacol Sore Throat) 1 lozenge MUCMEM Q6HR PRN PRN Reason: Sore Throat Last Admin: 10/13/17 02:34 Dose: 1 lozenge Bisacodyl (Dulcolax) 10 mg RECTAL DAILY PRN PRN Reason: Constipation Budesonide (Pulmicort) 0.5 mg NEB BIDRT [facility] Last Admin: 10/13/17 07:08 Dose: 0.5 mg Calcium Carbonate/Glycine (Tums) 500 mg PO Q8H PRN PRN Reason: Heartburn Docusate Sodium (Colace) 100 mg PO DAILY PRN PRN Reason: Constipation Fluticasone Propionate (Flonase) 0 gm NASBOTH DAILY [facility] Last Admin: 10/13/17 08:43 Dose: 1 spray Furosemide (Lasix) 40 mg PO BID [facility] Guaifenesin/Phenylephrine HCl (Robitussin Dm) 5 ml PO Q4H PRN PRN Reason: Congestion Last Admin: 07/16/18 17:29 Dose: 5 ml Heparin Sodium (Porcine) (Heparin Sodium) 5,000 units SUBCUT Q12H [facility] Last Admin: 10/13/17 08:43 Dose: Not Given Azithromycin 500 mg/ Sodium (Chloride) 250 mls @ 250 mls/hr IV Q24H [facility] Last Infusion: 10/12/17 22:41 Dose: Infused Insulin Aspart (Novolog) 0 unit SUBCUT QIDACANDBED [facility]; Protocol Last Admin: 10/13/17 08:42 Dose: 2 units Insulin Detemir (Levemir) 10 unit SUBCUT Q12H [facility] Last Admin: 10/13/17 08:41 Dose: 10 units Magnesium Hydroxide (Milk Of Magnesia) 30 ml PO BID PRN PRN Reason: Constipation Magnesium Oxide (Magnesium Oxide) 250 mg PO WITHBREAKFAST [facility] Last Admin: 10/13/17 08:41 Dose: 250 mg Methylprednisolone Sodium Succinate (Solu-Medrol) 40 mg IVPUSH Q8HR [facility] Last Admin: 10/13/17 05:35 Dose: 40 mg Metoprolol Tartrate (Lopressor) 12.5 mg PO BID [facility] Last Admin: 10/13/17 08:41 Dose: 12.5 mg Oxycodone/Acetaminophen (Percocet 325-5 Mg) 1 tab PO Q4H PRN PRN Reason: Pain (moderate 4-6) Last Admin: 10/13/17 08:41 Dose: 1 tab Pantoprazole Sodium (Protonix) 40 mg PO ACBREAKFAST [facility] Last Admin: 10/13/17 05:33 Dose: 40 mg Formoterol [ Perforomist] 20 Mcg Pt's Own Med 0 each INH BIDRT [facility] Last Admin: 10/13/17 07:08 Dose: 20 each Ursodiol [Ursodiol] 250 Mg Pt's Own Med 0 each PO TID [facility] Last Admin: 10/13/17 08:44 Dose: 1 each Potassium Chloride (Klor-Con 10) 10 meq PO TIDMEALS [facility] Last Admin: 10/13/17 08:41 Dose: 10 meq Sodium Chloride (Saline Flush) 10 ml FLUSH ASDIRECTED PRN PRN Reason: Keep Vein Open Last Admin: 10/13/17 05:34 Dose: 10 ml Sodium Chloride ([place] Nasal [place]) 0 ml OLIVERIO QID PRN PRN Reason: Congestion Last Admin: 10/12/17 22:49 Dose: 1 spray Tiotropium [place] (Spiriva Handihaler) 18 mcg INH DAILYRT [facility] Last Admin: 10/13/17 08:55 Dose: 18 mcg Discontinued Medications Albuterol/Ipratropium (Duoneb 3.0-0.5 Mg/3 Ml) 3 ml NEB ONETIME ONE Stop: 10/07/17 17:08 Last Admin: 10/07/17 17:37 Dose: 3 ml Albuterol/Ipratropium (Duoneb 3.0-0.5 Mg/3 Ml) 3 ml NEB ONETIME ONE Stop: 10/07/17 18:17 Last Admin: 10/07/17 20:23 Dose: Not Given Alprazolam (Xanax) 0.25 mg PO NOW ONE Stop: 10/09/17 15:02 Last Admin: 10/09/17 15:20 Dose: 0.25 mg Azithromycin (Zithromax) Confirm Administered Dose 500 mg .ROUTE .STK-MED ONE Stop: 10/10/17 19:23 Last Admin: 10/10/17 20:49 Dose: Not Given Furosemide (Lasix) 20 mg PO BIDDIURETIC [facility] Last Admin: 10/12/17 07:43 Dose: 20 mg Furosemide (Lasix) 40 mg IVPUSH Q12H [facility] Last Admin: 10/13/17 05:35 Dose: 40 mg Furosemide (Lasix) 40 mg IVPUSH ONETIME ONE Stop: 10/12/17 09:46 Last Admin: 10/12/17 10:45 Dose: 40 mg Piperacillin Sod/Tazobactam (Sod 4.5 gm/ Sodium Chloride) 50 mls @ 100 mls/hr IV ONETIME ONE Stop: 10/07/17 17:36 Last Admin: 10/07/17 17:48 Dose: 100 mls/hr Magnesium Sulfate 2 gm/ Premix 50 mls @ 50 mls/hr IV Q1H [facility] Stop: 10/12/17 14:29 Last Admin: 10/12/17 14:31 Dose: 25 mls/hr Insulin Detemir (Levemir) 10 unit SUBCUT ONETIME ONE Stop: 10/12/17 11:31 Last Admin: 10/12/17 12:49 Dose: 10 unit Methylprednisolone Sodium Succinate (Solu-Medrol) 125 mg IVPUSH ONETIME ONE Stop: 10/07/17 17:08 Last Admin: 10/07/17 17:48 Dose: 125 mg Methylprednisolone Sodium Succinate (Solu-Medrol) 40 mg IVPUSH Q6H [facility] Last Admin: 10/09/17 06:15 Dose: 40 mg Methylprednisolone Sodium Succinate (Solu-Medrol) 125 mg IVPUSH Q8H [facility] Last Admin: 10/10/17 06:01 Dose: 125 mg Methylprednisolone Sodium Succinate (Solu-Medrol) 80 mg IVPUSH Q8H [facility] Last Admin: 10/11/17 05:16 Dose: 80 mg Methylprednisolone Sodium Succinate (Solu-Medrol) 40 mg IVPUSH Q8HR [facility] Last Admin: 10/12/17 05:10 Dose: 40 mg Non-Formulary Medication (Nicotine Polacrilex [Nicotine Lozenge]) 2 mg BC Q1H PRN PRN Reason: tobacco cessation Potassium Chloride (Klor-Con 10) 30 meq PO DAILY [facility] - Exam Quality Assessment: Supplemental Oxygen, DVT Prophylaxis General: Alert, Oriented HEENT: Pupils Equal, Pupils Reactive, EOMI, Mucous Membr. Moist/[place] Neck: Supple Lungs: Normal Respiratory Effort, Wheezing Cardiovascular: Regular Rate, Regular Rhythm GI/Abdominal Exam: Normal Bowel Sounds, Soft, Non-Tender, No Organomegaly, No Distention, No Abnormal Bruit, No Mass, Pelvis Stable (Male) Exam: No Hernia, Normal Inspection, Normal Prostate, Circumcised Back Exam: Normal Inspection, Full Range of Motion Extremities: Normal Inspection, Normal Range of Motion, Non-Tender, No Pedal Edema, Normal Capillary Refill Skin: Warm, Dry, Intact Wound/Incisions: Healing Well Neurological: No New Focal Deficit Psy/Mental Status: Alert, Normal Affect, Normal Mood - Problem List & Annotations (1) Hypercapnic respiratory failure SNOMED Code(s): 888259716 Code(s): J96.92 - RESPIRATORY FAILURE, UNSPECIFIED WITH HYPERCAPNIA Status : Acute Current Visit: Yes (2) Acute respiratory failure with hypoxia SNOMED Code(s): 95317805, 240726440 Code(s): J96.01 - ACUTE RESPIRATORY FAILURE WITH HYPOXIA Status: Acute Current Visit: Yes (3) Acute and chronic respiratory failure ([id number]) SNOMED Code(s): 91991633 Code(s): J96.20 - ACUTE AND CHR RESP FAILURE, UNSP W HYPOXIA OR HYPERCAPNIA Status: Acute Priority: High Current Visit: No Onset Date: 07/05/15 Qualifiers: Respiratory failure complication: hypoxia Qualified Code(s): J96.21 - Acute and chronic respiratory failure with hypoxia (4) Acute exacerbation of chronic obstructive pulmonary disease (COPD) SNOMED Code(s): 027003537 Code(s): J44.1 - CHRONIC OBSTRUCTIVE PULMONARY DISEASE W (ACUTE) EXACERBATION Status: Acute Priority: High Current Visit: No Onset Date: 07/05/15 (5) Leukocytosis SNOMED Code(s): 342428984, 043114876 Code(s): D72.829 - ELEVATED WHITE BLOOD CELL COUNT, UNSPECIFIED Status: Acute Current Visit: No Qualifiers: Leukocytosis type: unspecified Qualified Code(s): D72.829 - Elevated white blood cell count, unspecified - Problem List Review Problem List Initiated/Reviewed/Updated: Yes - My Orders Last 24 Hours: My Active Orders 10/12/17 09:32 C DIFFICILE TOXIN BY PCR [MREF] Routine 10/12/17 09:35 OT Evaluation and Treatment [CONS] Routine PT Evaluation and Treatment [CONS] Routine 10/12/17 11:12 Glucose [Blood Glucose Check, Bedside] [RC] QIDACANDBED 10/12/17 14:30 methylPREDNISolone Sod Succ [Solu-MEDROL] 40 mg IVPUSH Q8HR 10/12/17 21:00 Insulin Detemir [Levemir] 10 unit SUBCUT Q12H 10/13/17 08:00 Magnesium Oxide 250 mg PO WITHBREAKFAST 10/13/17 09:21 MAGNESIUM [CHEM] Stat 10/13/17 21:00 Furosemide [Lasix] 40 mg PO BID - Plan Plan:: This is a 67 Y/M resident of [place], History of smoking with COPD, on home oxygen 3 L/24 hrs, admitted with acute Hypoxic Respiratory Failure. He gets SOB with minimal exertion. Oxygen requirement has improved. On 3 L this morning. Baseline is 3 L. Acute diarrhea -Resolved Hypomagnesemia -Replaced. -recheck level Acute on chronic hypoxic/hypercapnic respiratory failure due to COPD exacebation -improving slowly -continue supplemental oxygen. Patient not back to his baseline oxygen requirement -Continue using Incentive spirometry and flutter valve -PO lasix 40 mg bid for diuresis COPD exacebation -IV solu-medrol to 40 mg IV q8 hrs -PO azithromycin x 3 days. Last braxton today -Continue Due-Nebs -Will continue Nasal Saline spray -Will continue Ribitussin 5 ml q6hrs PRN for cough -continue Pulmicort -continue formoterol Sinus Tarchycardia -Resolved Hyperglycemia -this is due to steroid -Insulin sliding scale -accuchek 4x daily HTN -BP within acceptable- limits -continue current care Leukocytosis chronic -Now resolved Diet -regular Full code Disposition -for possible discharge tomorrow back to [place]
[2017-10-13] MEDS: Furosemide 40 MG Tab PO SCH (14:24)
[2017-10-13] MEDS: [UNRECOGNIZED DRUG - REMARK] PO SCH (21:06)
[2017-10-13] MEDS: Azithromycin 500 MG in Sodium Chloride 0.9% 250 ML IV SCH (21:08)
[2017-10-14] MEDS: ALPRAZolam 0.25 MG Tab PO PRN (01:10)
[2017-10-14] MEDS: Albuterol/Ipratropium 3.0-0.5 MG/3 ML Neb Soln NEB SCH ×4 (03:09→15:29)
[2017-10-14] MEDS: Pantoprazole 40 MG Tab.CR PO SCH (05:56)
[2017-10-14] MEDS: Sodium Chloride 0.9% 10 ML Syringe FLUSH PRN (05:57)
[2017-10-14] MEDS: methylPREDNISolone Sodium Succinate 40 MG/1 ML SDV IVPUSH SCH ×2 (05:58→13:02)
[2017-10-14] MEDS: Budesonide 0.5 MG/2 ML Neb Susp NEB SCH (07:37)
[2017-10-14] MEDS: FORMOTEROL 20 MCG INH SCH (07:37)
[2017-10-14] MEDS: Furosemide 40 MG Tab PO SCH ×2 (08:58→13:02)
[2017-10-14] MEDS: Metoprolol Tartrate 25 MG Tab PO SCH (08:58)
[2017-10-14] MEDS: Potassium Chloride 10 MEQ Tab.ER PO SCH ×2 (08:58→13:01)
[2017-10-14] MEDS: [UNRECOGNIZED DRUG - REMARK] PO SCH ×2 (08:59→13:02)
[2017-10-14] MEDS: Heparin Sodium 5,000 Units/ML Vial SUBCUT SCH (08:59)
[2017-10-14] MEDS: Insulin Aspart 100 Units/ML 3 ML Pen SUBCUT SCH ×2 (09:01→13:01)
[2017-10-14] MEDS: Insulin Detemir 100 Units/ML 3 ML Pen SUBCUT SCH (09:01)
[2017-10-14] MEDS: Tiotropium Inhaler 18 MCG Inhalation Powder Cap Kit of 5 INH SCH (09:02)
[2017-10-14] MEDS: Fluticasone Propionate Nasal Spray 16 GM Bottle NASBOTH SCH (09:02)
[2017-10-14] MEDS ORDERED: ALPRAZolam 0.25 MG Tab PO PRN (10:01)
--- NOTE | 2017-10-14 10:29 | PCM.DCSUM1 ---
Discharge Summary - Hospital Course Free Text/Narrative:: This is a 67 Y/M resident of [facility], History of smoking with COPD, on home oxygen 3 L/24 hrs, admitted with acute Hypoxic Respiratory Failure. Acute diarrhea -Resolved Hypomagnesemia -Replaced. Acute on chronic hypoxic/hypercapnic respiratory failure due to COPD exacebation -back to baseline -continue supplemental oxygen. COPD exacebation -treated with IV solu-medrol - finish tapering prednisone to his chronic 10 mg daily dose -finsih ABx with levofloxacin -Continue Due-Nebs -Will continue Nasal Saline spray -Will continue Robitussin PRN for cough -continue Pulmicort -continue formoterol Sinus Tarchycardia -Resolved Hyperglycemia -this is due to steroid -Insulin sliding scale - levemir daily -accuchek 4x daily HTN -BP within acceptable- limits -continue current care Anxiety started xanax Diagnosis: Stroke: No - Discharge Data Discharge Date: 10/14/17 Discharge Disposition: DC/Tfer to [facility] Condition: Stable - Patient Summary/Data Consults: Consultations 10/12/17 09:35 OT Evaluation and Treatment [CONS] Routine PT Evaluation and Treatment [CONS] Routine - Patient Instructions Diet: Regular Diet as Tolerated Activity: As Tolerated - Discharge Plan *PRESCRIPTION DRUG MONITORING PROGRAM REVIEWED*: Not Applicable *COPY OF PRESCRIPTION DRUG MONITORING REPORT IN PATIENT BRIDGETTE: Not Applicable Prescriptions/Med Rec: ALPRAZolam [Xanax] 0.25 mg PO BID PRN #30 tablet PRN Reason: Anxiety Dextromethorphan/guaiFENesin [Robitussin DM] 5 ml PO Q4H PRN #100 ml PRN Reason: Congestion guaiFENesin [Robitussin] 200 mg PO Q6H PRN #100 ml PRN Reason: Cough Insulin Aspart [NovoLOG] See Protocol SUBCUT QIDACANDBED PRN #1 pen PRN Reason: Hyperglycemia Insulin Detemir [Levemir] 10 unit SUBCUT DAILY #1 pen Levofloxacin [Levaquin] 500 mg PO DAILY #7 tablet predniSONE See Taper PO .TAPER #30 tab Home Medications: Home Meds Budesonide [Pulmicort] 0.5 mg IH BID 12/16/13 [History] Formoterol [Perforomist] 20 mcg INH BID 12/16/13 [History] Potassium Chloride [K-Tab ER] 10 meq PO TIDMEALS 12/16/13 [History] Tiotropium [Spiriva Handihaler] 18 mcg INH DAILY 12/16/13 [History] Acetaminophen 500 mg PO Q4HR PRN 01/05/14 [History] Albuterol/Ipratropium [DuoNeb 3.0-0.5 MG/3 ML] 3 ml NEB Q2HR PRN 10/07/17 [ History] Albuterol/Ipratropium [DuoNeb 3.0-0.5 MG/3 ML] 3 ml NEB Q6HR 10/07/17 [History] Bisacodyl [Dulcolax] 10 mg RC DAILY PRN 10/07/17 [History] Calcium Carbonate [Tums] 500 mg PO Q8HR PRN 10/07/17 [History] Fluticasone Propionate [Flonase] 50 mcg NASBOTH DAILY PRN 10/07/17 [History] Furosemide 20 mg PO BID 10/07/17 [History] Metoprolol Tartrate 12.5 mg PO BID 10/07/17 [History] Nicotine Polacrilex [Nicotine Lozenge] 2 mg BC Q1H PRN 10/07/17 [History] oxyCODONE HCl/Acetaminophen [Oxycodone-Acetaminophen 5-325] 1 each PO Q4HR PRN 10/07/17 [History] Magnesium Oxide 250 mg PO DAILY 10/12/17 [History] Pantoprazole Sodium [Protonix] 40 mg PO DAILY 10/12/17 [History] Roflumilast [Daliresp] 500 mcg PO DAILY 10/12/17 [History] ALPRAZolam [Xanax] 0.25 mg PO BID PRN #30 tablet 10/14/17 [Rx] Dextromethorphan/guaiFENesin [Robitussin DM] 5 ml PO Q4H PRN #100 ml 10/14/17 [ Rx] Insulin Aspart [NovoLOG] See Protocol SUBCUT QIDACANDBED PRN #1 pen 10/14/17 [Rx ] Insulin Detemir [Levemir] 10 unit SUBCUT DAILY #1 pen 10/14/17 [Rx] Levofloxacin [Levaquin] 500 mg PO DAILY #7 tablet 10/14/17 [Rx] guaiFENesin [Robitussin] 200 mg PO Q6H PRN #100 ml 10/14/17 [Rx] predniSONE See Taper PO .TAPER #30 tab 10/14/17 [Rx] Referrals: Gracie Cuellar MD [Primary Care Provider] - (in 2-3 days) - Discharge Summary/Plan Comment DC Time >30 min.: Yes - General Info Date of Service: 10/14/17 - Review of Systems General: Denies: Fever Pulmonary: Reports: Shortness of Breath (chronic), Wheezing (mild b/l) Cardiovascular: Denies: Chest Pain Gastrointestinal: Denies: Abdominal Pain Genitourinary: Denies: Dysuria Neurological: Denies: Confusion - Patient Data Vitals - Most Recent: Last Vital Signs Temp 36.8 C 10/14/17 08:09 Pulse 96 10/14/17 08:58 Resp 20 10/14/17 08:09 BP 123/79 10/14/17 08:58 Pulse Ox 94 L 10/14/17 08:09 Weight - Most Recent: 83.733 kg I&O - Last 24 hours: Intake & Output 10/13/17 10/14/17 10/14/17 22:59 06:59 14:59 Intake Total 350 550 Output Total 595 600 Balance -245 -50 Lab Results - Last 24 hrs: Laboratory Results - last 24 hr 10/13/17 10/13/17 10/13/17 Range/Units 10:35 10:59 17:02 POC Glucose 271 H 244 H (70-105) mg/dl Magnesium 2.0 (1.8-2.5) mg/dL 10/13/17 10/14/17 Range/Units 21:01 07:55 POC Glucose 326 H 159 H (70-105) mg/dl Magnesium (1.8-2.5) mg/dL PINKY Results - Last 24 hrs: Microbiology 10/13/17 06:20 Clostridium difficile (PCR) - Final Stool / Feces Med Orders - Current: Current Medications Acetaminophen (Tylenol) 650 mg PO Q4H PRN PRN Reason: Pain (mild 1-3 )/fever Al Hydroxide/Mg Hydroxide (Mag-Al Plus) 30 ml PO Q4H PRN PRN Reason: Dyspepsia Albuterol/Ipratropium (Duoneb 3.0-0.5 Mg/3 Ml) 3 ml NEB Q4HRRT [facility] Last Admin: 10/14/17 07:37 Dose: 3 ml Alprazolam (Xanax) 0.25 mg PO BID PRN PRN Reason: Anxiety Benzocaine/Menthol (Cepacol Sore Throat) 1 lozenge MUCMEM Q6HR PRN PRN Reason: Sore Throat Last Admin: 10/13/17 02:34 Dose: 1 lozenge Bisacodyl (Dulcolax) 10 mg RECTAL DAILY PRN PRN Reason: Constipation Budesonide (Pulmicort) 0.5 mg NEB BIDRT [facility] Last Admin: 10/14/17 07:37 Dose: 0.5 mg Calcium Carbonate/Glycine (Tums) 500 mg PO Q8H PRN PRN Reason: Heartburn Docusate Sodium (Colace) 100 mg PO DAILY PRN PRN Reason: Constipation Fluticasone Propionate (Flonase) 0 gm NASBOTH DAILY [facility] Last Admin: 10/14/17 09:02 Dose: 1 spray Furosemide (Lasix) 40 mg PO BIDDIURETIC [facility] Last Admin: 10/14/17 08:58 Dose: 40 mg Guaifenesin/Phenylephrine HCl (Robitussin Dm) 5 ml PO Q4H PRN PRN Reason: Congestion Last Admin: 10/11/17 17:29 Dose: 5 ml Heparin Sodium (Porcine) (Heparin Sodium) 5,000 units SUBCUT Q12H [facility] Last Admin: 10/14/17 08:59 Dose: Not Given Azithromycin 500 mg/ Sodium (Chloride) 250 mls @ 250 mls/hr IV Q24H [facility] Last Infusion: 10/13/17 23:25 Dose: Infused Insulin Aspart (Novolog) 0 unit SUBCUT QIDACANDBED [facility]; Protocol Last Admin: 10/14/17 09:01 Dose: 2 units Insulin Detemir (Levemir) 10 unit SUBCUT Q12H [facility] Last Admin: 10/14/17 09:01 Dose: 10 units Magnesium Hydroxide (Milk Of Magnesia) 30 ml PO BID PRN PRN Reason: Constipation Magnesium Oxide (Magnesium Oxide) 250 mg PO WITHBREAKFAST [facility] Last Admin: 10/14/17 08:58 Dose: 250 mg Methylprednisolone Sodium Succinate (Solu-Medrol) 40 mg IVPUSH Q8HR [facility] Last Admin: 10/14/17 05:58 Dose: 40 mg Metoprolol Tartrate (Lopressor) 12.5 mg PO BID [facility] Last Admin: 10/14/17 08:58 Dose: 12.5 mg Ursodiol [Ursodiol] 250 Mg Non-Form Med 0 each PO TID [facility] Last Admin: 10/14/17 08:59 Dose: 1 each Oxycodone/Acetaminophen (Percocet 325-5 Mg) 1 tab PO Q4H PRN PRN Reason: Pain (moderate 4-6) Last Admin: 10/13/17 08:41 Dose: 1 tab Pantoprazole Sodium (Protonix) 40 mg PO ACBREAKFAST [facility] Last Admin: 10/14/17 05:56 Dose: 40 mg Formoterol [ Perforomist] 20 Mcg Pt's Own Med 0 each INH BIDRT [facility] Last Admin: 10/14/17 07:37 Dose: 20 each Potassium Chloride (Klor-Con 10) 10 meq PO TIDMEALS [facility] Last Admin: 10/14/17 08:58 Dose: 10 meq Prednisone (Prednisone) 20 mg PO BID [facility] Sodium Chloride (Saline Flush) 10 ml FLUSH ASDIRECTED PRN PRN Reason: Keep Vein Open Last Admin: 10/14/17 05:57 Dose: 10 ml Sodium Chloride ([place] Nasal [place]) 0 ml OLIVERIO QID PRN PRN Reason: Congestion Last Admin: 10/12/17 22:49 Dose: 1 spray Tiotropium [place] (Spiriva Handihaler) 18 mcg INH DAILYRT [facility] Last Admin: 10/14/17 09:02 Dose: 18 mcg Discontinued Medications Albuterol/Ipratropium (Duoneb 3.0-0.5 Mg/3 Ml) 3 ml NEB ONETIME ONE Stop: 10/07/17 17:08 Last Admin: 10/07/17 17:37 Dose: 3 ml Albuterol/Ipratropium (Duoneb 3.0-0.5 Mg/3 Ml) 3 ml NEB ONETIME ONE Stop: 10/07/17 18:17 Last Admin: 10/07/17 20:23 Dose: Not Given Alprazolam (Xanax) 0.25 mg PO NOW ONE Stop: 10/09/17 15:02 Last Admin: 10/09/17 15:20 Dose: 0.25 mg Alprazolam (Xanax) 0.25 mg PO BEDTIME PRN PRN Reason: Anxiety Last Admin: 10/14/17 01:10 Dose: 0.25 mg Azithromycin (Zithromax) Confirm Administered Dose 500 mg .ROUTE .STK-MED ONE Stop: 10/10/17 19:23 Last Admin: 10/10/17 20:49 Dose: Not Given Furosemide (Lasix) 20 mg PO BIDDIURETIC [facility] Last Admin: 10/12/17 07:43 Dose: 20 mg Furosemide (Lasix) 40 mg IVPUSH Q12H [facility] Last Admin: 10/13/17 05:35 Dose: 40 mg Furosemide (Lasix) 40 mg IVPUSH ONETIME ONE Stop: 10/12/17 09:46 Last Admin: 10/12/17 10:45 Dose: 40 mg Piperacillin Sod/Tazobactam (Sod 4.5 gm/ Sodium Chloride) 50 mls @ 100 mls/hr IV ONETIME ONE Stop: 10/07/17 17:36 Last Admin: 10/07/17 17:48 Dose: 100 mls/hr Magnesium Sulfate 2 gm/ Premix 50 mls @ 50 mls/hr IV Q1H [facility] Stop: 10/12/17 14:29 Last Admin: 10/12/17 14:31 Dose: 25 mls/hr Insulin Detemir (Levemir) 10 unit SUBCUT ONETIME ONE Stop: 10/12/17 11:31 Last Admin: 10/12/17 12:49 Dose: 10 unit Methylprednisolone Sodium Succinate (Solu-Medrol) 125 mg IVPUSH ONETIME ONE Stop: 10/07/17 17:08 Last Admin: 10/07/17 17:48 Dose: 125 mg Methylprednisolone Sodium Succinate (Solu-Medrol) 40 mg IVPUSH Q6H [facility] Last Admin: 10/09/17 06:15 Dose: 40 mg Methylprednisolone Sodium Succinate (Solu-Medrol) 125 mg IVPUSH Q8H [facility] Last Admin: 10/10/17 06:01 Dose: 125 mg Methylprednisolone Sodium Succinate (Solu-Medrol) 80 mg IVPUSH Q8H [facility] Last Admin: 10/11/17 05:16 Dose: 80 mg Methylprednisolone Sodium Succinate (Solu-Medrol) 40 mg IVPUSH Q8HR [facility] Last Admin: 10/12/17 05:10 Dose: 40 mg Non-Formulary Medication (Nicotine Polacrilex [Nicotine Lozenge]) 2 mg BC Q1H PRN PRN Reason: tobacco cessation Ursodiol [Ursodiol] 250 Mg Pt's Own Med 0 each PO TID [facility] Last Admin: 10/13/17 14:24 Dose: 1 each Potassium Chloride (Klor-Con 10) 30 meq PO DAILY EVER - Exam Quality Assessment: Reports: Supplemental Oxygen General: Reports: Alert, Oriented Neck: Reports: Supple Lungs: Reports: Wheezing (mild, b/l) Cardiovascular: Reports: Regular Rate, Regular Rhythm GI/Abdominal Exam: Normal Bowel Sounds, Soft, Non-Tender, Other (obese) Extremities: No Pedal Edema Neurological: Reports: No New Focal Deficit Psy/Mental Status: Reports: Alert, Normal Affect, Normal Mood
[2017-10-14 13:28] VITALS: BP 121/78
[2017-10-14] MEDS ORDERED: predniSONE 20 MG Tab PO SCH (21:00)
== END 2017-10-14 16:00 | DRG 190 ==
LOC: DL.ED 16:55 → DL.MS 19:12 → UNDOADMIN 19:12 → DL.MS 19:28
PROVIDERS: ADMIT Student in an Organized Health Care Education/Training Program; ATTEND Student in an Organized Health Care Education/Training Program
DX: J44.1 Chronic obstructive pulmonary disease with (acute) exacerbation (principal); R09.02 Hypoxemia; J96.21 Acute and chronic respiratory failure with hypoxia; J96.22 Acute and chronic respiratory failure with hypercapnia; C34.90 Malignant neoplasm of unspecified part of unspecified bronchus or lung; I11.0 Hypertensive heart disease with heart failure; I50.9 Heart failure, unspecified; E11.9 Type 2 diabetes mellitus without complications; Z99.81 Dependence on supplemental oxygen; K21.9 Gastro-esophageal reflux disease without esophagitis; K80.20 Calculus of gallbladder without cholecystitis without obstruction; M10.9 Gout, unspecified; L40.9 Psoriasis, unspecified; E11.65 Type 2 diabetes mellitus with hyperglycemia; T38.0X5A Adverse effect of glucocorticoids and synthetic analogues, initial encounter; E83.42 Hypomagnesemia; F41.9 Anxiety disorder, unspecified; R19.7 Diarrhea, unspecified; R00.0 Tachycardia, unspecified; D72.829 Elevated white blood cell count, unspecified; Z87.891 Personal history of nicotine dependence; Z88.1 Allergy status to other antibiotic agents; Z79.899 Other long term (current) drug therapy; Z87.01 Personal history of pneumonia (recurrent)
CPT/HCPCS: 36415; 36600; 71045; 80053; 82803; 83605; 83735; 83880; 84100; 84484; 85025; 87040 ×2; 93005; 93010; 94640; 96365; 96375; 99284; 99285; J2543; J2930; J7050 ×2; 80048; 81001; 82962; 85027; 87493; 94060; 97116-GP; 97162-GP; 97165-GO; A9270-GY; J0456; J1644; J1815-GY; J1940; J2920; J3475

== ENCOUNTER 2017-11-14 13:13 | Emergency (ER) | payer MEDICARE, OTHER ==
[2017-11-14] MEDS ORDERED: Sodium Chloride 0.9% 10 ML Syringe FLUSH PRN (13:22)
[2017-11-14] MEDS ORDERED: Albuterol/Ipratropium 3.0-0.5 MG/3 ML Neb Soln NEB ONE (13:23)
[2017-11-14 13:30] VITALS: BP 128/75
--- NOTE | 2017-11-14 13:38 | CR ---
Clinical history: 67-year-old male chest pain. Interpretation: Chronic bibasilar atelectasis accentuated by less than optimal inspiratory effort but unchanged since 07 October 2017. Normal cardiac silhouette without cephalization of flow signs of alveolar edema or dependent new pleu ral fluid accumulation. No new lung mass, hilar lymphadenopathy or focal lobar pneumonia. No pneumothorax or free subdiaphragmatic air. CONCLUSION: No acute new cardiopulmonary abnormality.
[2017-11-14 13:42] LABS: BASE EXCESS ARTERIAL 12 mmol/L ((-2)-(+3)); BICARBONATE,ARTERIAL 38.5 mmol/L (22-26); O2 DELIVERY DEVICE NASAL CANNULA; O2 SATURATION ARTERIAL 99 % (95-100); PO2 ARTERIAL 213 mmHg (70-100)
[2017-11-14 13:45] LABS: ALLEN TEST rb; O2 FLOW RATE 9; PCO2 ARTERIAL 67 mmHg (35-45)
[2017-11-14 13:56] LABS: ANION GAP 14.4; CHLORIDE,CL 94 mmol/L (101-111); SODIUM,NA 140 mmol/L (135-145)
--- NOTE | 2017-11-14 13:58 | EDM.PDOC ---
ED HPI GENERAL MEDICAL PROBLEM - General Chief Complaint: Respiratory Problem Stated Complaint: FROM [facility] SOB Time Seen by Provider: 11/14/17 13:30 Source of Information: Reports: Patient, Intermediate Records, RN, RN Notes Reviewed History Limitations: Reports: Respiratory Distress - History of Present Illness INITIAL COMMENTS - FREE TEXT/NARRATIVE: Pt to the ER from [facility] with c/o increased SOB. Patient states he was started on Levaquin and Prednisone yesterday. He has had increased SOB since yesterday. Upon arrival, patient is not able to speak in full sentences. Patient denies fever, N/V/D. He states he does have some right sided chest pain with inspiration, SOB, and chills. He states he has had increased sputum production which has been yellow/green. Pt states he was recently admitted for pneumonia. Onset: Gradual Duration: Constant, Getting Worse Middle Chest Pain Score (Numeric/FACES): 4 - Related Data Allergies Allergy/AdvReac Type Severity Reaction Status Date / Time ciprofloxacin [From Cipro] Allergy Anaphylactic Verified 10/07/17 17:25 Shock ciprofloxacin HCl Allergy Anaphylactic Verified 10/07/17 17:25 [From Cipro] Shock Home Meds: Home Meds Budesonide [Pulmicort] 0.5 mg IH BID 12/16/13 [History] Formoterol [Perforomist] 20 mcg INH BID 12/16/13 [History] Potassium Chloride [K-Tab ER] 10 meq PO TIDMEALS 12/16/13 [History] Tiotropium [Spiriva Handihaler] 18 mcg INH DAILY 12/16/13 [History] Acetaminophen 500 mg PO Q4HR PRN 01/05/14 [History] Albuterol/Ipratropium [DuoNeb 3.0-0.5 MG/3 ML] 3 ml NEB Q2HR PRN 10/07/17 [ History] Albuterol/Ipratropium [DuoNeb 3.0-0.5 MG/3 ML] 3 ml NEB Q6HR 10/07/17 [History] Bisacodyl [Dulcolax] 10 mg RC DAILY PRN 10/07/17 [History] Calcium Carbonate [Tums] 500 mg PO Q8HR PRN 10/07/17 [History] Fluticasone Propionate [Flonase] 50 mcg NASBOTH DAILY PRN 10/07/17 [History] Furosemide 20 mg PO BID 10/07/17 [History] Metoprolol Tartrate 12.5 mg PO BID 10/07/17 [History] Nicotine Polacrilex [Nicotine Lozenge] 2 mg BC Q1H PRN 10/07/17 [History] oxyCODONE HCl/Acetaminophen [Oxycodone-Acetaminophen 5-325] 1 each PO Q4HR PRN 10/07/17 [History] Magnesium Oxide 250 mg PO DAILY 10/12/17 [History] Pantoprazole Sodium [Protonix] 40 mg PO DAILY 10/12/17 [History] Roflumilast [Daliresp] 500 mcg PO DAILY 10/12/17 [History] ALPRAZolam [Xanax] 0.25 mg PO BID PRN #30 tablet 10/14/17 [Rx] Dextromethorphan/guaiFENesin [Robitussin DM] 5 ml PO Q4H PRN #100 ml 10/14/17 [ Rx] Insulin Aspart [NovoLOG] See Protocol SUBCUT QIDACANDBED PRN #1 pen 10/14/17 [Rx ] Insulin Detemir [Levemir] 10 unit SUBCUT DAILY #1 pen 10/14/17 [Rx] Levofloxacin [Levaquin] 500 mg PO DAILY #7 tablet 10/14/17 [Rx] guaiFENesin [Robitussin] 200 mg PO Q6H PRN #100 ml 10/14/17 [Rx] Albuterol Sulfate 2.5 mg IH Q4H PRN 11/14/17 [History] predniSONE [Prednisone] 40 mg PO DAILY 11/14/17 [History] Past Medical History HEENT History: Reports: None, Cataract Cardiovascular History: Reports: CAD, Heart Failure, Hypertension Respiratory History: Reports: COPD, Pneumonia, Recurrent, SOB, Other (See Below) Other Respiratory History: Lung CA Gastrointestinal History: Reports: Cholelithiasis, GERD, Pancreatitis Genitourinary History: Reports: None Musculoskeletal History: Reports: Gout Neurological History: Reports: None Psychiatric History: Reports: None Endocrine/Metabolic History: Reports: Diabetes, Type II Hematologic History: Reports: None Immunologic History: Reports: None Oncologic (Cancer) History: Reports: Lung Dermatologic History: Reports: Psoriasis - Infectious Disease History Infectious Disease History: Reports: Other (See Below) Other Infectious Disease History: cannot remember - Past Surgical History HEENT Surgical History: Reports: None, Cataract Surgery, Tonsillectomy GI Surgical History: Reports: Colonoscopy, EGD, Hernia, Inguinal, Hernia Repair/ Other Social & Family History - Family History Family Medical History: Noncontributory Other Cardiac Family History: pt adopted doesnot know history - Caffeine Use Caffeine Use: Reports: Coffee - Living Situation & Occupation Living situation: Reports: Extended Care Facility ([facility] ) Occupation: Retired ED ROS GENERAL - Review of Systems Review Of Systems: ROS reveals no pertinent complaints other than HPI. ED EXAM, GENERAL - Physical Exam Exam: See Below Exam Limited By: Respiratory Distress General Appearance: Alert, WD/WN, Moderate Distress Eye Exam: Bilateral Eye: EOMI, Normal Inspection Ears: Normal External Exam, Hearing Grossly Normal Nose: Normal Inspection Throat/Mouth: Normal Inspection Head: Atraumatic, Normocephalic Neck: Other (Lipoma left side of neck) Respiratory/Chest: Respiratory Distress, Decreased Breath Sounds, Crackles ( bases bilaterally), Accessory Muscle Use, Retractions Cardiovascular: Normal Peripheral Pulses, Regular Rate, Rhythm, Tachycardia. No : No Edema Peripheral Pulses: 1+: Radial (L), Radial (R), Dorsalis Pedis (L), Dorsalis Pedis (R) GI/Abdominal: Normal Bowel Sounds, Non-Tender, Distended, Other (choleostomy drain placed) (Male) Exam: Deferred Rectal (Males) Exam: Deferred Back Exam: Normal Inspection, Decreased Range of Motion Extremities: Normal Inspection, Slow Capillary Refill, Limited Range of Motion Neurological: Alert, Oriented, Normal Cognition Psychiatric: Normal Affect, Normal Mood Skin Exam: Warm, Dry, Intact, Normal Color, No Rash Lymphatic: No Adenopathy Course - Vital Signs Last Recorded V/S: Last Vital Signs Temp 99.3 F 11/14/17 13:29 Pulse 110 H 11/14/17 13:55 Resp 16 11/14/17 13:29 BP 128/75 11/14/17 13:29 Pulse Ox 89 L 11/14/17 13:29 - Orders/Labs/Meds Orders: Active Orders 24 hr Category Date Time Status EKG Documentation Completion [RC] STAT Care 11/14/17 13:22 Active Peripheral IV Care [RC] . DIRECTED Care 11/14/17 13:23 Active RT Aerosol Therapy [RC] ASDIRECTED Care 11/14/17 13:24 Active UA W/MICROSCOPIC [URIN] Stat Lab 11/14/17 13:22 Ordered Piperacillin/Tazobactam [Zosyn] 3.375 gm Med 11/14/17 15:17 Active Sodium Chloride 0.9% [Normal Saline] 100 ml IV ONETIME Sodium Chloride 0.9% [Normal Saline] 1,000 ml Med 11/14/17 15:18 Active IV .BOLUS Sodium Chloride 0.9% [Saline Flush] Med 11/14/17 13:22 Active 10 ml FLUSH ASDIRECTED PRN Peripheral IV Insertion Adult [OM.PC] Stat Oth 11/14/17 13:22 Ordered Medication Orders Piperacillin Sod/Tazobactam (Sod 3.375 gm/ Sodium Chloride) 100 mls @ 200 mls/ hr IV ONETIME ONE Stop: 11/14/17 15:46 Sodium Chloride (Normal Saline) 1,000 mls @ 999 mls/hr IV .BOLUS ONE Stop: 11/14/17 16:18 Last Admin: 11/14/17 15:32 Dose: 999 mls/hr Sodium Chloride (Saline Flush) 10 ml FLUSH ASDIRECTED PRN PRN Reason: Keep Vein Open Last Admin: 11/14/17 13:29 Dose: 10 ml Labs: Laboratory Tests 11/14/17 11/14/17 11/14/17 Range/Units 13:30 13:30 13:30 WBC 26.5 H* (5.0-10.0) 10^3/uL RBC 4.46 L (4.6-6.2) 10^6/uL Hgb 9.7 L (14.0-18.0) g/dL Hct 35.8 L (40.0-54.0) % MCV 80.3 (80-100) fL MCH 21.7 L (27.0-34.0) pg MCHC 27.1 L (33.0-35.0) g/dL Plt Count 378 (150-450) 10^3/uL Lymph % (Auto) Rice [employer] Iron % (Auto) 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 % (Auto) [employer] Farmworker Add Manual Diff Yes Neutrophils % (Manual) 87 H (42-75) % Band Neutrophils % 2 % Lymphocytes % (Manual) 5 L (20-50) % Monocytes % (Manual) 6 (2-8) % Hypochromasia 1+ slight ABG pH (7.35-7.45) ABG pCO2 (35-45) mmHg ABG pO2 (70-100) mmHg ABG HCO3 (22-26) mmol/L ABG O2 Saturation (95-100) % ABG Base Excess ((-2)-(+3)) mmol/L Akhil Test O2 Delivery Device Oxygen Flow Rate Sodium 140 (135-145) mmol/L Potassium 4.4 (3.6-5.0) mmol/L Chloride 94 L (101-111) mmol/L Carbon Dioxide 36.0 H (21.0-31.0) mmol/L Anion Gap 14.4 BUN 14 (7-18) mg/dL Creatinine 0.7 (0.6-1.3) mg/dL Est Cr Clr Drug Dosing 91.14 mL/min Estimated GFR (MDRD) > 60 BUN/Creatinine Ratio 20.00 Glucose 131 H (74-105) mg/dL Lactic Acid 2.4 H (0.5-2.2) mmol/L Calcium 8.9 (8.4-10.2) mg/dl Total Bilirubin 0.3 (0.2-1.0) mg/dL AST 23 (10-42) IU/L ALT 24 (10-60) IU/L Alkaline Phosphatase 70 (42-121) IU/L Troponin I < 0.02 (0.00-0.02) ng/ml B-Natriuretic Peptide 98 (0-100) pg/ml Total Protein 7.2 (6.7-8.2) g/dl Albumin 3.5 (3.2-5.5) g/dl Globulin 3.7 Albumin/Globulin Ratio 0.95 /19/18 Range/Units 13:40 WBC (5.0-10.0) 10^3/uL RBC (4.6-6.2) 10^6/uL Hgb (14.0-18.0) g/dL Hct (40.0-54.0) % MCV (80-100) fL MCH (27.0-34.0) pg MCHC (33.0-35.0) g/dL Plt Count (150-450) 10^3/uL Lymph % (Auto) Iron % (Auto) Eos % (Auto) Add Manual Diff Neutrophils % (Manual) (42-75) % Band Neutrophils % % Lymphocytes % (Manual) (20-50) % Monocytes % (Manual) (2-8) % Hypochromasia ABG pH 7.38 (7.35-7.45) ABG pCO2 67 H* (35-45) mmHg ABG pO2 213 H (70-100) mmHg ABG HCO3 38.5 H (22-26) mmol/L ABG O2 Saturation 99 (95-100) % ABG Base Excess 12 H ((-2)-(+3)) mmol/L Akhil Test rb O2 Delivery Device Nasal cannula Oxygen Flow Rate 9 Sodium (135-145) mmol/L Potassium (3.6-5.0) mmol/L Chloride (101-111) mmol/L Carbon Dioxide (21.0-31.0) mmol/L Anion Gap BUN (7-18) mg/dL Creatinine (0.6-1.3) mg/dL Est Cr Clr Drug Dosing mL/min Estimated GFR (MDRD) BUN/Creatinine Ratio Glucose (74-105) mg/dL Lactic Acid (0.5-2.2) mmol/L Calcium (8.4-10.2) mg/dl Total Bilirubin (0.2-1.0) mg/dL AST (10-42) IU/L ALT (10-60) IU/L Alkaline Phosphatase (42-121) IU/L Troponin I (0.00-0.02) ng/ml B-Natriuretic Peptide (0-100) pg/ml Total Protein (6.7-8.2) g/dl Albumin (3.2-5.5) g/dl Globulin Albumin/Globulin Ratio Meds: Medications Generic Name Dose Route Start Last Admin Trade Name Freq PRN Reason Stop Dose Admin Piperacillin Sod/Tazobactam 100 mls @ 200 mls/hr 11/14/17 15:17 Sod 3.375 gm/ Sodium Chloride IV 11/14/17 15:46 ONETIME ONE Sodium Chloride 1,000 mls @ 999 mls/hr 11/14/17 15:18 11/14/17 15:32 Normal Saline IV 11/14/17 16:18 999 mls/hr .BOLUS ONE Administration Sodium Chloride 10 ml 11/14/17 13:22 11/14/17 13:29 Saline Flush FLUSH 10 ml ASDIRECTED PRN Administration Keep Vein Open Discontinued Medications Generic Name Dose Route Start Last Admin Trade Name Joseq PRN Reason Stop Dose Admin Albuterol/Ipratropium 3 ml 11/14/17 13:23 11/14/17 13:55 Duoneb 3.0-0.5 Mg/3 Ml NEB 11/14/17 13:24 3 ml ONETIME ONE Administration Methylprednisolone Sodium Succinate 125 mg 11/14/17 15:26 Solu-Medrol IVPUSH 11/14/17 15:27 ONETIME ONE - Radiology Interpretation Free Text/Narrative:: Portable chest xray: No acute new cardiopulmonary abnormality See rad report Departure - Departure Time of Disposition: 15:46 Disposition: DC/Tfer to [facility] Condition: Fair Clinical Impression: COPD, Severe chronic obstructive pulmonary disease Sepsis Qualifiers: Sepsis type: sepsis due to unspecified organism Qualified Code(s): A41.9 - Sepsis, unspecified organism - Discharge Information *PRESCRIPTION DRUG MONITORING PROGRAM REVIEWED*: No *COPY OF PRESCRIPTION DRUG MONITORING REPORT IN PATIENT BRIDGETTE: No Forms: ED Department Discharge, Interfacility Transfer EMTALA - My Orders Last 24 Hours: My Active Orders 11/14/17 13:22 EKG Documentation Completion [RC] STAT UA W/MICROSCOPIC [URIN] Stat Sodium Chloride 0.9% [Saline Flush] 10 ml FLUSH ASDIRECTED PRN Peripheral IV Insertion Adult [OM.PC] Stat 11/14/17 13:23 Peripheral IV Care [RC] . DIRECTED 11/14/17 13:24 RT Aerosol Therapy [RC] ASDIRECTED 11/14/17 15:17 Piperacillin/Tazobactam [Zosyn] 3.375 gm Sodium Chloride 0.9% [Normal Saline] 100 ml IV ONETIME 11/14/17 15:18 Sodium Chloride 0.9% [Normal Saline] 1,000 ml IV .BOLUS - Assessment/Plan Last 24 Hours: My Active Orders 11/14/17 13:22 EKG Documentation Completion [RC] STAT UA W/MICROSCOPIC [URIN] Stat Sodium Chloride 0.9% [Saline Flush] 10 ml FLUSH ASDIRECTED PRN Peripheral IV Insertion Adult [OM.PC] Stat 11/14/17 13:23 Peripheral IV Care [RC] . DIRECTED 11/14/17 13:24 RT Aerosol Therapy [RC] ASDIRECTED 11/14/17 15:17 Piperacillin/Tazobactam [Zosyn] 3.375 gm Sodium Chloride 0.9% [Normal Saline] 100 ml IV ONETIME 11/14/17 15:18 Sodium Chloride 0.9% [Normal Saline] 1,000 ml IV .BOLUS
[2017-11-14] MEDS ORDERED: Piperacillin/Tazobactam 3.375 GM in Sodium Chloride 0.9% 100 ML IV ONE (15:17)
[2017-11-14] MEDS ORDERED: Sodium Chloride 0.9% 1,000 ML IV ONE (15:18)
[2017-11-14] MEDS ORDERED: methylPREDNISolone Sodium Succinate 125 MG/2 ML SDV IVPUSH ONE (15:26)
== END 2017-11-14 15:58 ==
LOC: DL.ED 13:13
DX: A41.9 Sepsis, unspecified organism (principal); J44.9 Chronic obstructive pulmonary disease, unspecified; E11.9 Type 2 diabetes mellitus without complications; I11.0 Hypertensive heart disease with heart failure; I50.9 Heart failure, unspecified; L40.9 Psoriasis, unspecified; Z88.1 Allergy status to other antibiotic agents; Z79.899 Other long term (current) drug therapy
CPT/HCPCS: 36415; 36600; 71045; 80053; 81001; 82803; 83605; 83880; 84484; 85025; 93005; 93010; 94640; 96365; 96375; 99285; J2543; J2930; J7030; J7050; 99284; J7620-GY